=== PATIENT | male | born 1950 | race Caucasian/White ===

== ENCOUNTER 2017-04-24 09:16 | Outpatient (CLI) | payer MEDICARE, BC ==
--- OUTSIDE RECORDS SUMMARY | 2017-04-24 09:20 | XMS | Clinical Summary ---
:1950 Author Organization [facility] Address [address] [place] [address] Phone Care Team Providers Name Role Phone , Primary Care Provider Unavailable Allergies Not on File Current Medications Not on file Active Problems Not on file Social History Tobacco Use Types Packs/Day Years Used Date Never Assessed Sex Assigned at Date Recorded Not on file Last Filed Vital Signs Not on file Plan of Treatment Not on file Results Not on filefrom Last 3 Months
--- NOTE | 2017-04-24 11:14 | RAD ---
LEFT ANKLE 3 VIEWS: HISTORY: Left ankle pain for the past week. COMPARISON: None. FINDINGS: Radiopaque foreign object is present within the posteromedial soft tissues of the lower extremity. There is evidence of old medial ligamentous complex injury. Large enthesophyte of the posterior pro cess calcaneus. Moderate degenerative disease of the posterior subtalar joint. Mild mid foot collapse. IMPRESSION: Chronic changes as described above. POS: OFF
== END 2017-04-24 09:17 | disposition home or self-care (01) ==
LOC: SCSRAD 09:16
PROVIDERS: ATTEND Family Medicine
DX: M25.572 Pain in left ankle and joints of left foot (principal)

== ENCOUNTER 2017-11-01 08:47 | Outpatient (CLI) | payer MEDICARE, BC ==
--- NOTE | 2017-11-01 10:18 | RAD ---
RIGHT HIP 2 VIEWS: Date: 11/01/17 HISTORY: Right hip pain. FINDINGS: Degenerative changes are present. No fracture, dislocation, or bony destruction is identified. IMPRESSION: Right hip osteoarthritis. POS: [facility]
== END 2017-11-01 08:48 | disposition home or self-care (01) ==
LOC: TBSIIMAG 08:47
PROVIDERS: ATTEND Neurological Surgery
DX: M25.551 Pain in right hip (principal); M16.11 Unilateral primary osteoarthritis, right hip

== ENCOUNTER 2019-07-17 11:57 | Outpatient (CLI) | payer MEDICARE, BC ==
--- NOTE | 2019-07-17 12:28 | RAD ---
Exam: Chest 2 views HISTORY:CHF Comparison: 09/04/2016 FINDINGS: Lungs: No masses or consolidation. Cardiac silhouette:Mild enlargement Pulmonary vessels: Normal Pleural Spaces: Clear Pneumothorax: None Osseous abnormalities: None of acuity. IMPRESSION: No focal consolidation. Mild enlargement of cardiac silhouette.
== END 2019-07-17 11:58 | disposition home or self-care (01) ==
LOC: SCSRAD 11:57
PROVIDERS: ATTEND Internal Medicine
DX: I25.10 Atherosclerotic heart disease of native coronary artery without angina pectoris (principal); I51.7 Cardiomegaly
CPT/HCPCS: 36415; 71046; 83880

== ENCOUNTER 2020-07-28 08:01 | Outpatient (CLI) | payer MEDICARE, BC ==
[2020-07-29 01:36] LABS: SARS-CoV-2 MS2 Positive; SARS-CoV-2 N Gene Negative; SARS-CoV-2 S Gene Negative; SARS-CoV-2 by NAA Not Detected (NotDetected); SARS-CoV-2 orf1ab Negative
== END 2020-07-28 08:02 | disposition home or self-care (01) ==
LOC: LABBT 08:01
PROVIDERS: ATTEND Internal Medicine Gastroenterology
DX: Z01.812 Encounter for preprocedural laboratory examination (principal); R19.5 Other fecal abnormalities; Z20.822 Contact with and (suspected) exposure to COVID-19
CPT/HCPCS: 87635; U0003

== ENCOUNTER 2020-08-02 07:07 | Day surgery (SDC) | payer MEDICARE, BC ==
[2020-07-29 10:03] VITALS: BMI 48.6
--- NOTE | 2020-08-02 11:10 | OP ---
DATE OF PROCEDURE: 08/02/2020 PRE-PROCEDURE DIAGNOSES: 1. Positive Cologuard. 2. Normal CBC. 3. No GI symptoms. POSTPROCEDURE DIAGNOSES: 1. Two diminutive descending colon polyps, 1/2 retrieved. 2. Large cecal polyp, flat, removed with saline-assisted snare polypectomy, margin treated with APC and clip secondary to deep mucosal defect and bleeding. 3. Two diminutive sigmoid and one diminutive ascending colon polyp removed, not retrieved. 4. Two transverse colon polyps 3 to 4 mm in size, removed and retrieved. RECOMMENDATIONS: 1. Await histopathology. 2. Repeat colonoscopy in 1 year unless there is a high-grade dysplasia in the polyp, and he will need further treatment with surgery. 3. Resume preop medications. 4. We will discuss with the patient the results of the polypectomies in 1 week. ANESTHESIA: TIVA. PROCEDURE IN DETAIL: After the patient was informed of the risks, benefits, and possible complications of the endoscopy including perforation, reaction to medication and aspiration, informed consent was obtained. The patient was brought to endoscopy suite, where he was sedated in a gradual fashion. Once he was comfortable, rectal examination was performed, which was normal. There was normal prostate exam. Small internal hemorrhoids, but no overt lesions. Forward and retroflexed views of the rectum were normal. The endoscope was advanced into the colon. The cecum was identified by ileocecal valve and the appendiceal orifice. Prep was fair to good. Irrigation with about 500 mL of sterile water was performed to clear the prep as best we could. There was a large 2 cm flat cecal polyp in the cecum just to the right of the ileocecal valve with the ileocecal valve on the left. This was raised with sterile saline injection and then removed piecemeal with snare polypectomy. Margins were treated with argon plasma coagulation due to some oozing in the base. Clips were placed over this 3, with good closure of the mucosa. No residual polyp tissue was seen at the margins before closure. There was another polyp in the ascending and 2 in the sigmoids were diminutive, removed by cold snare polypectomy and retrieved. There were 2 descending colon polyps, removed by cold snare polypectomy, 1 which was treated, and there were two transverse colon polyps about 3 mm in size, which were removed and retrieved. No other lesions were seen. The cecum was re-evaluated to make sure there was no bleeding and there was not. The scope was removed, and the patient tolerated the procedure well with no complications. Job ID: [id number]
[2020-08-02] MEDS ORDERED: Lidocaine 1% PF 5 ML VIAL ONE (11:38)
[2020-08-02] MEDS ORDERED: PROPOFOL 200 MG/20 ML VIAL ONE (11:38)
== END 2020-08-02 11:30 | disposition home or self-care (01) ==
LOC: SDC 07:07
PROVIDERS: ATTEND Internal Medicine Gastroenterology
PROC: 3E0H87Z Introduction of Electrolytic and Water Balance Substance into Lower GI, Via Natural or Artificial Opening Endoscopic (ICD-10-PCS; principal; 2020-08-02)
PROC: 0DBK8ZX Excision of Ascending Colon, Via Natural or Artificial Opening Endoscopic, Diagnostic (ICD-10-PCS; 2020-08-02)
PROC: 0DBL8ZZ Excision of Transverse Colon, Via Natural or Artificial Opening Endoscopic (ICD-10-PCS; 2020-08-02)
PROC: 0DBN8ZX Excision of Sigmoid Colon, Via Natural or Artificial Opening Endoscopic, Diagnostic (ICD-10-PCS; 2020-08-02)
PROC: 0DBM8ZX Excision of Descending Colon, Via Natural or Artificial Opening Endoscopic, Diagnostic (ICD-10-PCS; 2020-08-02)
PROC: 0DBH8ZX Excision of Cecum, Via Natural or Artificial Opening Endoscopic, Diagnostic (ICD-10-PCS; 2020-08-02)
DX: D12.0 Benign neoplasm of cecum (principal); D12.3 Benign neoplasm of transverse colon; D12.4 Benign neoplasm of descending colon; K64.8 Other hemorrhoids; I25.10 Atherosclerotic heart disease of native coronary artery without angina pectoris; E11.9 Type 2 diabetes mellitus without complications; I25.2 Old myocardial infarction; I10 Essential (primary) hypertension; Z79.02 Long term (current) use of antithrombotics/antiplatelets; Z79.4 Long term (current) use of insulin; Z79.82 Long term (current) use of aspirin; Z79.899 Other long term (current) drug therapy; Z88.5 Allergy status to narcotic agent; Z95.5 Presence of coronary angioplasty implant and graft; Z98.1 Arthrodesis status
CPT/HCPCS: 36416; 88305; J2704

== ENCOUNTER 2021-01-04 08:20 | Outpatient (CLI) | payer MEDICARE, BC | END 2021-01-04 08:21 | disposition home or self-care (01) | LOC: BICRAD 08:20 | PROVIDERS: ATTEND Internal Medicine Critical Care Medicine | DX: R06.00 Dyspnea, unspecified (principal) | CPT/HCPCS: 71046 ==

== ENCOUNTER 2021-01-04 11:18 | Inpatient (IN) | payer MEDICARE, BC ==
[2021-01-04] MEDS ORDERED: Furosemide 40 MG/4 ML VIAL SLOW IVP SCH (11:30)
[2021-01-04] MEDS ORDERED: Furosemide 40 MG/4 ML VIAL ONE ×2 (11:34→11:35)
[2021-01-04 11:48] VITALS: BMI 46.7
[2021-01-04] MEDS ORDERED: Dextrose 50% Abboject 50 ML SYRINGE IVP PRN (12:30)
[2021-01-04] MEDS ORDERED: Dextrose 5% in Water 1,000 ML IV PRN ×2 (12:30→14:16)
[2021-01-04] MEDS ORDERED: Insulin Regular 300 UNITS/3 ML VIAL SC PRN (12:30)
[2021-01-04 13:25] LABS: #Basophils 0.1 thou/uL (0.0-0.2); #Eosinphils 0.3 thou/uL (0.0-0.7); #Lymphocytes 2.1 thou/uL (1.20-3.40); #Monocytes 0.5 thou/uL (0.11-0.59); #Neutrophils 4.1 thou/uL (1.40-6.50); %Eosinophils 4.4 % (0.0-10.0); %Lymphocytes 29.6 % (21.0-51.0); %Monocytes 6.5 % (0.0-10.0); %Neutrophils 58.6 % (42.0-75.0); Hemoglobin 12.3 g/dL (14.0-18.0); Mean Corpuscular HGB CONC 31.6 g/dL (32.0-36.0); Mean Corpuscular Hemoglobin 29.1 pg (27.0-31.0); Mean Corpuscular Volume 91.8 fL (78.0-98.0); Mean Platelet Volume 8.1 fL (7.4-10.4); Platelet Count 217 thou/uL (130-400); RBC Distribution Width 15.8 % (11.5-14.5); Red Blood Cell (RBC) Count 4.22 mill/uL (4.70-6.10)
[2021-01-04 13:46] LABS: ALT (SGPT) 18 U/L (8-55); AST (SGOT) 14 U/L (5-34); Albumin 3.4 g/dL (3.4-4.8); Alkaline Phosphatase 73 U/L (40-110); BUN (Urea Nitrogen) 21 mg/dL (8.4-25.7); Bilirubin, Total 0.7 mg/dL (0.2-1.2); Calc. Creatinine Clearance 112 mL/min (70-130); Globulin 2.9 g/dL (2.4-3.5); Glucose 114 mg/dL (83-110); Protein, Total 6.3 g/dL (5.8-8.1)
[2021-01-04 14:00] LABS: Anion Gap 13 mmol/L (10-20); Carbon Dioxide 37 mmol/L (23-31); Chloride 99 mmol/L (98-107); Potassium 3.1 mmol/L (3.5-5.1); Sodium 146 mmol/L (136-145)
[2021-01-04] MEDS ORDERED: Dextrose 50% Abboject 50 ML SYRINGE SLOW IVP PRN (14:16)
[2021-01-04] MEDS ORDERED: HYDROcodone/Acetaminophen 5/325 mg Tablet PO PRN (19:18)
[2021-01-04] MEDS ORDERED: Carvedilol 6.25 MG TAB PO SCH (21:00)
[2021-01-04] MEDS: Acetaminophen 325 MG TAB PO PRN (22:00)
[2021-01-04] MEDS: Carvedilol 25 MG TAB PO SCH (22:01)
[2021-01-04] MEDS: Rosuvastatin 20 MG TAB PO SCH (22:01)
[2021-01-04] MEDS: Famotidine 20 MG TAB PO SCH (22:01)
[2021-01-04] MEDS: Furosemide 100 MG/10 ML VIAL SLOW IVP SCH (22:02)
[2021-01-04] MEDS: Melatonin 3 MG TAB PO PRN (22:02)
[2021-01-05] MEDS ORDERED: ALPRAZolam 0.25 MG TAB PO SCH (01:30)
[2021-01-05 03:27] LABS: #Basophils 0.1 thou/uL (0.0-0.2); #Eosinphils 0.3 thou/uL (0.0-0.7); #Lymphocytes 1.6 thou/uL (1.20-3.40); #Monocytes 0.5 thou/uL (0.11-0.59); #Neutrophils 4.5 thou/uL (1.40-6.50); %Basophils 1.2 % (0.0-1.0); %Lymphocytes 22.9 % (21.0-51.0); %Monocytes 6.9 % (0.0-10.0); %Neutrophils 64.9 % (42.0-75.0); Hemoglobin 12.8 g/dL (14.0-18.0); Mean Corpuscular HGB CONC 31.8 g/dL (32.0-36.0); Mean Corpuscular Hemoglobin 29.4 pg (27.0-31.0); Mean Corpuscular Volume 92.4 fL (78.0-98.0); Mean Platelet Volume 8.2 fL (7.4-10.4); Platelet Count 204 thou/uL (130-400); RBC Distribution Width 15.8 % (11.5-14.5); Red Blood Cell (RBC) Count 4.35 mill/uL (4.70-6.10); White Blood Cell (WBC) Count 6.9 thou/uL (4.8-10.8)
[2021-01-05 03:51] LABS: BUN (Urea Nitrogen) 19 mg/dL (8.4-25.7); Calc. Creatinine Clearance 121 mL/min (70-130); Calcium 8.9 mg/dL (7.8-10.44); Glucose 157 mg/dL (83-110)
[2021-01-05 03:59] LABS: Anion Gap 20 mmol/L (10-20); Carbon Dioxide 33 mmol/L (23-31); Chloride 100 mmol/L (98-107); Sodium 149 mmol/L (136-145)
[2021-01-05] MEDS ORDERED: Furosemide 100 MG/10 ML VIAL SLOW IVP SCH (06:00)
[2021-01-05] MEDS: Lantus 1000 UNITS/10 ML VIAL SC SCH (07:45)
[2021-01-05] MEDS: Furosemide 100 MG/10 ML VIAL SLOW IVP SCH ×3 (07:47→21:05)
[2021-01-05] MEDS: Enoxaparin Sodium 40 MG/0.4 ML SYRINGE SC SCH (07:49)
[2021-01-05] MEDS: Ibuprofen 200 MG TAB PO PRN (07:49)
[2021-01-05] MEDS: Losartan 25 MG TAB PO SCH (07:50)
[2021-01-05] MEDS: Tamsulosin HCl 0.4 MG CAP PO SCH (07:50)
[2021-01-05] MEDS: Famotidine 20 MG TAB PO SCH ×2 (07:50→21:05)
[2021-01-05] MEDS: Carvedilol 25 MG TAB PO SCH ×2 (07:50→21:05)
[2021-01-05] MEDS: Finasteride 5 MG TAB PO SCH (07:50)
[2021-01-05] MEDS: Clopidogrel Bisulfate 75 MG TAB PO SCH (07:50)
[2021-01-05] MEDS ORDERED: Rosuvastatin 20 MG TAB PO SCH (09:00)
[2021-01-05] MEDS ORDERED: Furosemide 40 MG/4 ML VIAL SLOW IVP SCH (09:00)
[2021-01-05] MEDS: Rosuvastatin 20 MG TAB PO SCH (21:05)
[2021-01-05] MEDS: HumaLOG 300 UNITS/3 ML VIAL SC PRN (21:12)
[2021-01-05] MEDS: Melatonin 3 MG TAB PO PRN (21:12)
[2021-01-05] MEDS: Acetaminophen 325 MG TAB PO PRN (21:12)
[2021-01-06] MEDS: Acetaminophen 325 MG TAB PO PRN ×2 (06:01→20:22)
[2021-01-06] MEDS ORDERED: Metolazone 2.5 MG TAB PO SCH (08:30)
[2021-01-06] MEDS: Lantus 1000 UNITS/10 ML VIAL SC SCH (09:11)
[2021-01-06] MEDS: Carvedilol 25 MG TAB PO SCH ×2 (09:13→20:23)
[2021-01-06] MEDS: Tamsulosin HCl 0.4 MG CAP PO SCH (09:14)
[2021-01-06] MEDS: Clopidogrel Bisulfate 75 MG TAB PO SCH (09:14)
[2021-01-06] MEDS: Finasteride 5 MG TAB PO SCH (09:14)
[2021-01-06] MEDS: Famotidine 20 MG TAB PO SCH ×2 (09:15→20:23)
[2021-01-06] MEDS: Furosemide 100 MG/10 ML VIAL SLOW IVP SCH ×2 (09:15→20:21)
[2021-01-06] MEDS: Enoxaparin Sodium 40 MG/0.4 ML SYRINGE SC SCH (09:15)
[2021-01-06] MEDS: Losartan 25 MG TAB PO SCH (09:15)
[2021-01-06] MEDS: Ibuprofen 200 MG TAB PO PRN (10:37)
[2021-01-06 13:11] VITALS: BP 125/72
[2021-01-06] MEDS: HumaLOG 300 UNITS/3 ML VIAL SC PRN (20:22)
[2021-01-06] MEDS: Melatonin 3 MG TAB PO PRN (20:23)
[2021-01-06] MEDS: Rosuvastatin 20 MG TAB PO SCH (20:23)
[2021-01-07 03:45] LABS: BUN (Urea Nitrogen) 20 mg/dL (8.4-25.7); Calc. Creatinine Clearance 115 mL/min (70-130); Calcium 8.9 mg/dL (7.8-10.44); Glucose 163 mg/dL (83-110)
[2021-01-07 03:54] LABS: Anion Gap 12 mmol/L (10-20); Carbon Dioxide 40 mmol/L (23-31); Chloride 94 mmol/L (98-107); Sodium 143 mmol/L (136-145)
[2021-01-07 03:57] LABS: Potassium 2.8 mmol/L (3.5-5.1)
[2021-01-07 04:40] LABS: Band 2 % (5-11); Eosinophils 9 % (0-10); Hemoglobin 12.8 g/dL (14.0-18.0); Lymphocytes 20 % (21-51); MDiff Complete? YES; Mean Corpuscular Hemoglobin 29.4 pg (27.0-31.0); Mean Corpuscular Volume 91.9 fL (78.0-98.0); Mean Platelet Volume 8.7 fL (7.4-10.4); Monocytes 10 % (0-10); Neutrophil 59 % (42-75); Platelet Count 194 thou/uL (130-400); RBC Distribution Width 15.8 % (11.5-14.5); Red Blood Cell (RBC) Count 4.35 mill/uL (4.70-6.10); White Blood Cell (WBC) Count 7.8 thou/uL (4.8-10.8)
[2021-01-07] MEDS: Potassium Chloride 20 MEQ TAB PO SCH ×2 (04:54→09:01)
[2021-01-07] MEDS: Ibuprofen 200 MG TAB PO PRN (05:04)
[2021-01-07] MEDS ORDERED: Furosemide 100 MG/10 ML VIAL SLOW IVP SCH (06:00)
[2021-01-07 07:25] VITALS: TEMP 96
[2021-01-07] MEDS ORDERED: acetaZOLAMIDE Sodium 500 mg Vial IVP SCH (08:30)
[2021-01-07] MEDS: Lantus 1000 UNITS/10 ML VIAL SC SCH (09:01)
[2021-01-07] MEDS: Carvedilol 25 MG TAB PO SCH (09:02)
[2021-01-07] MEDS: Clopidogrel Bisulfate 75 MG TAB PO SCH (09:02)
[2021-01-07] MEDS: Enoxaparin Sodium 40 MG/0.4 ML SYRINGE SC SCH (09:03)
[2021-01-07] MEDS: Finasteride 5 MG TAB PO SCH (09:03)
[2021-01-07] MEDS: Losartan 25 MG TAB PO SCH (09:03)
[2021-01-07] MEDS: Famotidine 20 MG TAB PO SCH (09:03)
[2021-01-07] MEDS: Tamsulosin HCl 0.4 MG CAP PO SCH (09:04)
[2021-01-07] MEDS ORDERED: Sterile Water 10 ML ONE (09:08)
[2021-01-07] MEDS ORDERED: Sterile Water 10 ML VIAL IVP SCH (09:15)
== END 2021-01-07 11:08 | disposition home or self-care (01) | DRG 291 ==
LOC: CCU 11:21 → IMCU/EMU 14:21
PROVIDERS: ADMIT Internal Medicine Critical Care Medicine; ATTEND Internal Medicine Critical Care Medicine
DX: I11.0 Hypertensive heart disease with heart failure (principal); J96.01 Acute respiratory failure with hypoxia; I50.33 Acute on chronic diastolic (congestive) heart failure; Z68.43 Body mass index [BMI] 50.0-59.9, adult; B94.8 Sequelae of other specified infectious and parasitic diseases; J84.10 Pulmonary fibrosis, unspecified; I25.10 Atherosclerotic heart disease of native coronary artery without angina pectoris; I87.8 Other specified disorders of veins; E66.01 Morbid (severe) obesity due to excess calories; E11.9 Type 2 diabetes mellitus without complications; G47.30 Sleep apnea, unspecified; Z96.653 Presence of artificial knee joint, bilateral; R00.1 Bradycardia, unspecified; E78.5 Hyperlipidemia, unspecified; I48.91 Unspecified atrial fibrillation; Z95.5 Presence of coronary angioplasty implant and graft; Z90.49 Acquired absence of other specified parts of digestive tract; Z87.01 Personal history of pneumonia (recurrent); Z82.49 Family history of ischemic heart disease and other diseases of the circulatory system; Z81.8 Family history of other mental and behavioral disorders; Z98.890 Other specified postprocedural states; I25.2 Old myocardial infarction; Z86.010 Personal history of colon polyps; Z84.1 Family history of disorders of kidney and ureter; Z99.81 Dependence on supplemental oxygen; Z79.4 Long term (current) use of insulin; Z79.899 Other long term (current) drug therapy
CPT/HCPCS: 36415; 36416; 71045; 71046; 80048; 80053; 83880; 85007; 85025; 85027; 93306; 93970; J1120; J1650; J1815; J1940

== ENCOUNTER 2021-01-08 03:23 | Inpatient (IN) | payer MEDICARE, BC ==
[2021-01-08] MEDS ORDERED: Propofol 1,000 MG/100 ML VIAL IV ONE (05:47)
[2021-01-08] MEDS ORDERED: Norepinephrine 8 MG/0.9% NS 250 ML ONE (05:47)
[2021-01-08] MEDS ORDERED: Fentanyl CADD 100 ML ONE (05:48)
[2021-01-08] MEDS ORDERED: Ondansetron PF 4 MG/2 ML Vial IVP PRN (06:09)
[2021-01-08] MEDS ORDERED: Dextrose 5% in Water 1,000 ML IV PRN (06:13)
[2021-01-08] MEDS ORDERED: HumaLOG 300 UNITS/3 ML VIAL SC PRN (06:13)
[2021-01-08] MEDS ORDERED: Dextrose 50% Abboject 50 ML SYRINGE SLOW IVP PRN (06:13)
[2021-01-08] MEDS ORDERED: Propofol BOLUS 1,000 MG/100 ML VIAL IV PRN (06:45)
[2021-01-08] MEDS ORDERED: Morphine 2 MG/ML VIAL SLOW IVP PRN (06:45)
[2021-01-08] MEDS ORDERED: Fentanyl CADD 100 ML IV SCH (06:45)
[2021-01-08] MEDS ORDERED: Fentanyl BOLUS 250 ML IVPB PRN (06:45)
[2021-01-08] MEDS ORDERED: Norepinephrine 8 MG/0.9% NS 250 ML IVPB SCH (06:45)
[2021-01-08] MEDS ORDERED: Propofol 1,000 MG/100 ML VIAL IV PRN (06:45)
[2021-01-08 07:01] LABS: Lactic Acid 2.7 mmol/L (0.5-2.2)
[2021-01-08 07:11] LABS: Anion Gap 16 mmol/L (10-20); BUN (Urea Nitrogen) 32 mg/dL (8.4-25.7); Calc. Creatinine Clearance 65 mL/min (70-130); Calcium 8.7 mg/dL (7.8-10.44); Carbon Dioxide 36 mmol/L (23-31); Chloride 93 mmol/L (98-107); Glucose 200 mg/dL (83-110); Potassium 3.3 mmol/L (3.5-5.1); Sodium 142 mmol/L (136-145)
[2021-01-08 07:12] LABS: ALT (SGPT) 45 U/L (8-55); AST (SGOT) 58 U/L (5-34); Albumin 3.4 g/dL (3.4-4.8); Alkaline Phosphatase 111 U/L (40-110); Bilirubin, Total 1.1 mg/dL (0.2-1.2); Globulin 3.1 g/dL (2.4-3.5); Magnesium 1.9 mg/dL (1.6-2.6); Protein, Total 6.5 g/dL (5.8-8.1)
[2021-01-08 07:27] LABS: Band 20 % (5-11); Eosinophils 1 % (0-10); Hemoglobin 13.8 g/dL (14.0-18.0); Lymphocytes 19 % (21-51); MDiff Complete? YES; Mean Corpuscular Hemoglobin 30.3 pg (27.0-31.0); Mean Corpuscular Volume 91.9 fL (78.0-98.0); Mean Platelet Volume 8.8 fL (7.4-10.4); Monocytes 3 % (0-10); Neutrophil 57 % (42-75); Platelet Count 276 thou/uL (130-400); RBC Distribution Width 16.1 % (11.5-14.5); Red Blood Cell (RBC) Count 4.54 mill/uL (4.70-6.10); White Blood Cell (WBC) Count 13.7 thou/uL (4.8-10.8)
[2021-01-08] MEDS ORDERED: Magnesium Sulfate 2 GM in Sodium Chloride 0.9% 100 ML IVPB SCH (07:45)
[2021-01-08] MEDS ORDERED: Magnesium 2 GM/50 ML 2 GM in Premix Bag 1 BAG IVPB SCH (08:00)
[2021-01-08 08:08] LABS: Phosphorus 3.6 mg/dL (2.3-4.7)
[2021-01-08 08:13] LABS: Troponin I 0.179 ng/mL (< 0.028)
[2021-01-08] MEDS ORDERED: Electrolyte Replacement Protocol 1 EACH FS SCH (08:15)
[2021-01-08] MEDS ORDERED: Ventilator Sedation Protocol 1 EACH FS SCH (08:15)
[2021-01-08] MEDS ORDERED: Enoxaparin Sodium 40 MG/0.4 ML SYRINGE SC SCH (09:00)
[2021-01-08] MEDS ORDERED: Famotidine 20 MG TAB PO SCH (09:00)
[2021-01-08] MEDS ORDERED: VANCOMYCIN 1.75 GM/350 ML BAG 1.75 GM in Premix Bag 1 BAG IVPB SCH (09:00)
[2021-01-08] MEDS: Potassium Chloride 20 MEQ in Premix Bag 1 BAG IVPB SCH ×2 (09:01→10:16)
[2021-01-08] MEDS: Cefepime 2 GM in Sodium Chloride 0.9% 100 ML IVPB SCH ×2 (09:52→21:02)
[2021-01-08] MEDS: Aspirin 81 mg Enteric Coated Tablet PO SCH (09:52)
[2021-01-08] MEDS: Clopidogrel Bisulfate 75 MG TAB PO SCH (09:53)
[2021-01-08 14:02] LABS: Anion Gap 15 mmol/L (10-20); BUN (Urea Nitrogen) 33 mg/dL (8.4-25.7); Calc. Creatinine Clearance 69 mL/min (70-130); Calcium 8.5 mg/dL (7.8-10.44); Carbon Dioxide 37 mmol/L (23-31); Chloride 95 mmol/L (98-107); Glucose 111 mg/dL (83-110); Sodium 144 mmol/L (136-145)
[2021-01-08 14:07] LABS: Potassium 2.8 mmol/L (3.5-5.1)
[2021-01-08 14:08] LABS: Lactic Acid 2.3 mmol/L (0.5-2.2)
[2021-01-08 14:15] LABS: Troponin I 0.636 ng/mL (< 0.028)
[2021-01-08] MEDS ORDERED: Enoxaparin Sodium 100 MG/ML SYRINGE SC SCH (15:00)
[2021-01-08] MEDS ORDERED: Furosemide 40 MG/4 ML VIAL SLOW IVP SCH (15:30)
[2021-01-08] MEDS: Potassium Chloride 40 MEQ in Premix Bag 1 BAG IVPB SCH ×2 (16:17→18:08)
[2021-01-08] MEDS: Hydrocortisone Sod Succ/PF 100 mg/2 ml Vial IVP SCH ×2 (18:07→23:28)
[2021-01-08] MEDS: Potassium Bicarbonate/Cit Ac 20 MEQ TAB PER TUBE SCH ×2 (18:08→21:02)
[2021-01-08] MEDS ORDERED: Famotidine/PF 20 mg/2ml Vial SLOW IVP SCH (21:00)
[2021-01-08 21:15] LABS: Anion Gap 17 mmol/L (10-20); BUN (Urea Nitrogen) 33 mg/dL (8.4-25.7); Calc. Creatinine Clearance 68 mL/min (70-130); Calcium 8.8 mg/dL (7.8-10.44); Carbon Dioxide 35 mmol/L (23-31); Chloride 95 mmol/L (98-107); Glucose 138 mg/dL (83-110); Potassium 4.3 mmol/L (3.5-5.1); Sodium 143 mmol/L (136-145)
[2021-01-09] MEDS: Potassium Bicarbonate/Cit Ac 20 MEQ TAB PER TUBE SCH (00:53)
[2021-01-09] MEDS: Lorazepam 2 MG/ML VIAL SLOW IVP PRN ×2 (03:27→13:05)
[2021-01-09 04:55] LABS: Hemoglobin 13.1 g/dL (14.0-18.0); Mean Corpuscular HGB CONC 32.8 g/dL (32.0-36.0); Mean Corpuscular Volume 91.6 fL (78.0-98.0); Mean Platelet Volume 8.8 fL (7.4-10.4); Platelet Count 230 thou/uL (130-400); RBC Distribution Width 16.2 % (11.5-14.5); Red Blood Cell (RBC) Count 4.37 mill/uL (4.70-6.10)
[2021-01-09 05:04] LABS: Lactic Acid 2.2 mmol/L (0.5-2.2)
[2021-01-09 05:05] LABS: ALT (SGPT) 30 U/L (8-55); AST (SGOT) 28 U/L (5-34); Albumin 3.1 g/dL (3.4-4.8); Alkaline Phosphatase 91 U/L (40-110); Anion Gap 22 mmol/L (10-20); BUN (Urea Nitrogen) 37 mg/dL (8.4-25.7); Bilirubin, Total 1.4 mg/dL (0.2-1.2); Calc. Creatinine Clearance 66 mL/min (70-130); Calcium 8.7 mg/dL (7.8-10.44); Carbon Dioxide 30 mmol/L (23-31); Chloride 95 mmol/L (98-107); Globulin 3.1 g/dL (2.4-3.5); Glucose 213 mg/dL (83-110); Phosphorus 3.2 mg/dL (2.3-4.7); Potassium 3.8 mmol/L (3.5-5.1); Protein, Total 6.2 g/dL (5.8-8.1); Sodium 143 mmol/L (136-145)
[2021-01-09 05:23] LABS: Critical Call Chem Troponin I RESULT DECREASING
[2021-01-09 05:29] LABS: Band 9 % (5-11); Lymphocytes 14 % (21-51); MDiff Complete? YES; Monocytes 2 % (0-10); Neutrophil 75 % (42-75)
[2021-01-09 05:42] LABS: CKMB 1.1 ng/mL (0-6.6)
[2021-01-09] MEDS ORDERED: Magnesium 2 GM/50 ML 2 GM in Premix Bag 1 BAG IVPB SCH (06:30)
[2021-01-09] MEDS: Hydrocortisone Sod Succ/PF 100 mg/2 ml Vial IVP SCH ×3 (07:25→23:11)
[2021-01-09 07:33] LABS: Actual Bicarbonate (HCO3a) 26.2 mEq/L (22-28); Base Excess (BEa) 3.8 mEq/L (-2.0 to +3.0); CO2 Tension 33.1 mmHg (35.0-45.0); Calcium, Ionized (arterial) 1.02 mmol/L (1.12-1.30); Carboxyhemoglobin (COHb) 1.2 gm% (0.0-3.0); Hemoglobin (Hb) 15.3 g/dL (14.0-18.0); O2 Tension (PaO2), arterial 145.8 mmHg (> 70.0); Potassium - ABG Lab 3.59 mmol/L (3.70-5.30); pH, Arterial 7.52 (7.35-7.45)
[2021-01-09 07:50] LABS: ALV-art Gradient 204.975 mmHg (0-20); Puncture Site RRA
[2021-01-09] MEDS ORDERED: Sterile Water 10 ML ONE ×2 (08:05→21:08)
[2021-01-09] MEDS ORDERED: acetaZOLAMIDE Sodium 500 mg Vial IVP SCH (09:00)
[2021-01-09] MEDS: Clopidogrel Bisulfate 75 MG TAB PO SCH (09:35)
[2021-01-09] MEDS: Cefepime 2 GM in Sodium Chloride 0.9% 100 ML IVPB SCH ×2 (09:35→21:37)
[2021-01-09] MEDS: Aspirin 81 mg Enteric Coated Tablet PO SCH (09:35)
[2021-01-09 11:13] LABS: Hemoglobin 12.8 g/dL (14.0-18.0); Platelet Count 211 thou/uL (130-400)
[2021-01-09] MEDS: Insulin Regular 300 UNITS/3 ML VIAL SC PRN ×2 (11:19→17:25)
[2021-01-09 11:32] LABS: PTT 43.3 sec (22.9-36.1)
[2021-01-09 11:34] LABS: D-Dimer Test 1.69 *mcg/mL (0.27-0.43)
[2021-01-09] MEDS: Heparin 10,000 UNITS/ 10 ML VIAL SLOW IVP SCH (12:14)
[2021-01-09] MEDS: Heparin 25,000 units/D5W 500 ML IVPB SCH (12:16)
[2021-01-09 18:49] LABS: PTT Greater than 250.0 sec (22.9-36.1)
[2021-01-09 21:01] LABS: INR-International Normal Ratio 1.4; Prothrombin Time 17.6 sec (12.0-14.7)
[2021-01-09] MEDS: Pantoprazole 40 MG VIAL IVP SCH (21:37)
[2021-01-09] MEDS: acetaZOLAMIDE Sodium 500 mg Vial IVP SCH (21:37)
[2021-01-09] MEDS: HumaLOG 300 UNITS/3 ML VIAL SC PRN (23:02)
[2021-01-10] MEDS: Lorazepam 2 MG/ML VIAL SLOW IVP PRN (00:14)
[2021-01-10 05:24] LABS: Hemoglobin 12.4 g/dL (14.0-18.0); Mean Corpuscular Hemoglobin 30.1 pg (27.0-31.0); Mean Corpuscular Volume 91.1 fL (78.0-98.0); Mean Platelet Volume 8.6 fL (7.4-10.4); Platelet Count 217 thou/uL (130-400); RBC Distribution Width 15.7 % (11.5-14.5); Red Blood Cell (RBC) Count 4.13 mill/uL (4.70-6.10); White Blood Cell (WBC) Count 8.2 thou/uL (4.8-10.8)
[2021-01-10 05:49] LABS: ALT (SGPT) 23 U/L (8-55); AST (SGOT) 15 U/L (5-34); Alkaline Phosphatase 80 U/L (40-110); Anion Gap 19 mmol/L (10-20); BUN (Urea Nitrogen) 43 mg/dL (8.4-25.7); Band 6 % (5-11); Bilirubin, Total 0.9 mg/dL (0.2-1.2); Calc. Creatinine Clearance 70 mL/min (70-130); Calcium 8.5 mg/dL (7.8-10.44); Carbon Dioxide 29 mmol/L (23-31); Chloride 96 mmol/L (98-107); Globulin 2.9 g/dL (2.4-3.5); Glucose 318 mg/dL (83-110); Lymphocytes 12 % (21-51); MDiff Complete? YES; Magnesium 2.5 mg/dL (1.6-2.6); Monocytes 3 % (0-10); Neutrophil 79 % (42-75); Protein, Total 5.9 g/dL (5.8-8.1); Sodium 141 mmol/L (136-145)
[2021-01-10 05:52] LABS: Potassium 2.7 mmol/L (3.5-5.1)
[2021-01-10] MEDS: Insulin Regular 300 UNITS/3 ML VIAL SC PRN ×3 (06:10→21:53)
[2021-01-10 06:11] LABS: PTT 155.8 sec (22.9-36.1)
[2021-01-10] MEDS: Heparin 25,000 units/D5W 500 ML IVPB SCH (06:13)
[2021-01-10] MEDS: Potassium Chloride 40 MEQ in Sodium Chloride 0.9% 250 ML 250 ML IVPB SCH ×2 (07:14→21:44)
[2021-01-10] MEDS: Hydrocortisone Sod Succ/PF 100 mg/2 ml Vial IVP SCH ×3 (07:26→23:47)
[2021-01-10 07:36] LABS: Actual Bicarbonate (HCO3a) 29.9 mEq/L (22-28); Base Excess (BEa) 6.8 mEq/L (-2.0 to +3.0); CO2 Tension 37.2 mmHg (35.0-45.0); Calcium, Ionized (arterial) 1.02 mmol/L (1.12-1.30); Hemoglobin (Hb) 13.1 g/dL (14.0-18.0); O2 Tension (PaO2), arterial 141.4 mmHg (> 70.0); Potassium - ABG Lab 2.36 mmol/L (3.70-5.30); pH, Arterial 7.52 (7.35-7.45)
[2021-01-10 07:45] LABS: Puncture Site RRA
[2021-01-10 08:45] LABS: Vancomycin, Trough 6.2 ug/mL
[2021-01-10] MEDS: Cefepime 2 GM in Sodium Chloride 0.9% 100 ML IVPB SCH ×2 (09:29→20:44)
[2021-01-10] MEDS ORDERED: Potassium Chloride 40 MEQ in Premix Bag 1 BAG IVPB SCH (10:45)
[2021-01-10] MEDS: HumaLOG 300 UNITS/3 ML VIAL SC PRN (16:07)
[2021-01-10 16:11] LABS: PTT 125.2 sec (22.9-36.1)
[2021-01-10 16:34] LABS: Anion Gap 17 mmol/L (10-20); BUN (Urea Nitrogen) 42 mg/dL (8.4-25.7); Calc. Creatinine Clearance 80 mL/min (70-130); Calcium 8.6 mg/dL (7.8-10.44); Carbon Dioxide 29 mmol/L (23-31); Chloride 101 mmol/L (98-107); Glucose 287 mg/dL (83-110); Sodium 144 mmol/L (136-145)
[2021-01-10 16:53] LABS: Potassium 2.9 mmol/L (3.5-5.1)
[2021-01-10] MEDS ORDERED: Sterile Water 10 ML ONE (17:14)
[2021-01-10] MEDS ORDERED: Electrolyte Replacement Protocol FS PRN (17:15)
[2021-01-10] MEDS: acetaZOLAMIDE Sodium 500 mg Vial IVP SCH ×2 (17:17→21:43)
[2021-01-10] MEDS: Potassium Chloride 40 MEQ in Premix Bag 1 BAG IVPB SCH ×2 (17:17→20:45)
[2021-01-10] MEDS: Pantoprazole 40 MG VIAL IVP SCH (20:07)
[2021-01-10] MEDS ORDERED: Lantus 1000 UNITS/10 ML VIAL SC SCH (21:00)
[2021-01-10] MEDS: Aspirin 81 mg Enteric Coated Tablet PO SCH (21:43)
[2021-01-11] MEDS: Heparin 10,000 UNITS/ 10 ML VIAL SLOW IVP SCH (01:41)
[2021-01-11] MEDS ORDERED: Sterile Water 10 ML ONE (03:15)
[2021-01-11] MEDS: acetaZOLAMIDE Sodium 500 mg Vial IVP SCH ×2 (04:07→17:00)
[2021-01-11 04:14] LABS: Hemoglobin 12.1 g/dL (14.0-18.0); Mean Corpuscular HGB CONC 31.6 g/dL (32.0-36.0); Mean Corpuscular Hemoglobin 28.8 pg (27.0-31.0); Mean Corpuscular Volume 91.2 fL (78.0-98.0); Mean Platelet Volume 8.7 fL (7.4-10.4); Platelet Count 196 thou/uL (130-400); RBC Distribution Width 15.6 % (11.5-14.5); Red Blood Cell (RBC) Count 4.18 mill/uL (4.70-6.10)
[2021-01-11 04:36] LABS: Phosphorus 2.7 mg/dL (2.3-4.7)
[2021-01-11 04:39] LABS: ALT (SGPT) 17 U/L (8-55); AST (SGOT) 14 U/L (5-34); Albumin 2.8 g/dL (3.4-4.8); Alkaline Phosphatase 71 U/L (40-110); Anion Gap 13 mmol/L (10-20); BUN (Urea Nitrogen) 40 mg/dL (8.4-25.7); Bilirubin, Total 0.7 mg/dL (0.2-1.2); Calc. Creatinine Clearance 88 mL/min (70-130); Calcium 8.5 mg/dL (7.8-10.44); Carbon Dioxide 31 mmol/L (23-31); Chloride 103 mmol/L (98-107); Globulin 2.8 g/dL (2.4-3.5); Glucose 265 mg/dL (83-110); Magnesium 2.4 mg/dL (1.6-2.6); Protein, Total 5.6 g/dL (5.8-8.1); Sodium 144 mmol/L (136-145)
[2021-01-11 04:50] LABS: Potassium 2.6 mmol/L (3.5-5.1)
[2021-01-11 04:52] LABS: Band 13 % (5-11); Lymphocytes 3 % (21-51); MDiff Complete? YES; Monocytes 6 % (0-10); Neutrophil 78 % (42-75)
[2021-01-11] MEDS: Insulin Regular 300 UNITS/3 ML VIAL SC PRN ×3 (05:08→18:18)
[2021-01-11] MEDS: Potassium Chloride 40 MEQ in Premix Bag 1 BAG IVPB SCH ×3 (06:11→23:17)
[2021-01-11] MEDS: Hydrocortisone Sod Succ/PF 100 mg/2 ml Vial IVP SCH ×2 (06:12→15:54)
[2021-01-11 07:39] LABS: Actual Bicarbonate (HCO3a) 32.3 mEq/L (22-28); Base Excess (BEa) 7.5 mEq/L (-2.0 to +3.0); CO2 Tension 46.2 mmHg (35.0-45.0); Carboxyhemoglobin (COHb) 0.7 gm% (0.0-3.0); Hemoglobin (Hb) 12.6 g/dL (14.0-18.0); O2 Tension (PaO2), arterial 89.9 mmHg (> 70.0); Potassium - ABG Lab 2.63 mmol/L (3.70-5.30); pH, Arterial 7.46 (7.35-7.45)
[2021-01-11 07:47] LABS: Puncture Site LRA
[2021-01-11] MEDS: Heparin 25,000 units/D5W 500 ML IVPB SCH (07:56)
[2021-01-11] MEDS: Aspirin Chewable 81 MG TAB PO SCH (09:27)
[2021-01-11] MEDS: Cefepime 2 GM in Sodium Chloride 0.9% 100 ML IVPB SCH (09:59)
[2021-01-11] MEDS ORDERED: Lantus 1000 UNITS/10 ML VIAL SC SCH (10:45)
[2021-01-11 14:36] LABS: Potassium 3.4 mmol/L (3.5-5.1)
[2021-01-11] MEDS: Rosuvastatin 20 MG TAB PO SCH (20:21)
[2021-01-11] MEDS: Lantus 1000 UNITS/10 ML VIAL SC SCH (20:21)
[2021-01-11] MEDS: Pantoprazole 40 MG VIAL IVP SCH (20:21)
[2021-01-11] MEDS: HumaLOG 300 UNITS/3 ML VIAL SC PRN (21:59)
[2021-01-11 22:48] LABS: Potassium 2.9 mmol/L (3.5-5.1)
[2021-01-12] MEDS: Heparin 25,000 units/D5W 500 ML IVPB SCH (04:28)
[2021-01-12] MEDS: Potassium Chloride 40 MEQ in Premix Bag 1 BAG IVPB SCH (04:28)
[2021-01-12 04:46] LABS: Hemoglobin 11.7 g/dL (14.0-18.0); Mean Corpuscular HGB CONC 32.9 g/dL (32.0-36.0); Mean Corpuscular Hemoglobin 30.4 pg (27.0-31.0); Mean Corpuscular Volume 92.4 fL (78.0-98.0); Mean Platelet Volume 8.8 fL (7.4-10.4); Platelet Count 190 thou/uL (130-400); RBC Distribution Width 15.6 % (11.5-14.5); Red Blood Cell (RBC) Count 3.84 mill/uL (4.70-6.10); White Blood Cell (WBC) Count 8.1 thou/uL (4.8-10.8)
[2021-01-12 04:59] LABS: Phosphorus 2.7 mg/dL (2.3-4.7)
[2021-01-12 05:01] LABS: ALT (SGPT) 17 U/L (8-55); AST (SGOT) 14 U/L (5-34); Albumin 2.9 g/dL (3.4-4.8); Alkaline Phosphatase 69 U/L (40-110); Anion Gap 8 mmol/L (10-20); BUN (Urea Nitrogen) 40 mg/dL (8.4-25.7); Bilirubin, Total 0.6 mg/dL (0.2-1.2); Calc. Creatinine Clearance 99 mL/min (70-130); Calcium 8.7 mg/dL (7.8-10.44); Carbon Dioxide 36 mmol/L (23-31); Chloride 107 mmol/L (98-107); Globulin 2.9 g/dL (2.4-3.5); Glucose 226 mg/dL (83-110); Magnesium 2.5 mg/dL (1.6-2.6); Potassium 3.5 mmol/L (3.5-5.1); Protein, Total 5.8 g/dL (5.8-8.1); Sodium 147 mmol/L (136-145)
[2021-01-12 05:23] LABS: Band 10 % (5-11); Lymphocytes 16 % (21-51); MDiff Complete? YES; Monocytes 2 % (0-10); Neutrophil 72 % (42-75)
[2021-01-12] MEDS: Insulin Regular 300 UNITS/3 ML VIAL SC PRN ×3 (05:34→17:04)
[2021-01-12] MEDS ORDERED: Potassium Bicarbonate/Cit Ac 20 MEQ TAB PER TUBE SCH (08:00)
[2021-01-12] MEDS: methylPREDNISolone Sod Succ 40 MG VIAL IVP SCH (08:42)
[2021-01-12] MEDS ORDERED: Potassium Chloride 40 MEQ in Premix Bag 1 BAG IVPB SCH (08:45)
[2021-01-12] MEDS: Aspirin Chewable 81 MG TAB PO SCH (08:50)
[2021-01-12] MEDS: Potassium Chloride 20 MEQ TAB PO SCH ×2 (12:00→16:52)
[2021-01-12 16:35] LABS: Anion Gap 10 mmol/L (10-20); BUN (Urea Nitrogen) 38 mg/dL (8.4-25.7); Calc. Creatinine Clearance 115 mL/min (70-130); Calcium 8.5 mg/dL (7.8-10.44); Carbon Dioxide 33 mmol/L (23-31); Chloride 106 mmol/L (98-107); Glucose 223 mg/dL (83-110); Potassium 3.8 mmol/L (3.5-5.1); Sodium 145 mmol/L (136-145)
[2021-01-12] MEDS ORDERED: Potassium Chloride 20 MEQ TAB PO SCH (19:11)
[2021-01-12] MEDS: Pantoprazole 40 MG VIAL IVP SCH (20:56)
[2021-01-12] MEDS: Lantus 1000 UNITS/10 ML VIAL SC SCH (20:57)
[2021-01-12] MEDS: Rosuvastatin 20 MG TAB PO SCH (20:57)
[2021-01-13 04:35] LABS: #Lymphocytes 1.4 thou/uL (1.20-3.40); #Monocytes 0.7 thou/uL (0.11-0.59); #Neutrophils 5.5 thou/uL (1.40-6.50); %Eosinophils 0.4 % (0.0-10.0); %Lymphocytes 17.9 % (21.0-51.0); %Monocytes 9.3 % (0.0-10.0); %Neutrophils 72.4 % (42.0-75.0); Hemoglobin 11.2 g/dL (14.0-18.0); Mean Corpuscular HGB CONC 30.8 g/dL (32.0-36.0); Mean Corpuscular Hemoglobin 28.9 pg (27.0-31.0); Mean Corpuscular Volume 93.9 fL (78.0-98.0); Mean Platelet Volume 8.7 fL (7.4-10.4); Platelet Count 199 thou/uL (130-400); RBC Distribution Width 15.5 % (11.5-14.5); Red Blood Cell (RBC) Count 3.88 mill/uL (4.70-6.10); White Blood Cell (WBC) Count 7.6 thou/uL (4.8-10.8)
[2021-01-13 04:55] LABS: Anion Gap 12 mmol/L (10-20); BUN (Urea Nitrogen) 35 mg/dL (8.4-25.7); Calc. Creatinine Clearance 129 mL/min (70-130); Calcium 8.6 mg/dL (7.8-10.44); Carbon Dioxide 31 mmol/L (23-31); Chloride 105 mmol/L (98-107); Glucose 180 mg/dL (83-110); Potassium 3.4 mmol/L (3.5-5.1); Sodium 145 mmol/L (136-145)
[2021-01-13] MEDS: Potassium Chloride 20 MEQ in Premix Bag 1 BAG IVPB SCH ×2 (09:07→09:09)
[2021-01-13] MEDS: methylPREDNISolone Sod Succ 40 MG VIAL IVP SCH (09:08)
[2021-01-13] MEDS: Aspirin Chewable 81 MG TAB PO SCH (09:08)
[2021-01-13] MEDS ORDERED: Iopamidol-370 76% 500 ML 1 ML ONE (10:40)
[2021-01-13 16:32] LABS: Anion Gap 14 mmol/L (10-20); BUN (Urea Nitrogen) 36 mg/dL (8.4-25.7); Calc. Creatinine Clearance 121 mL/min (70-130); Calcium 8.5 mg/dL (7.8-10.44); Carbon Dioxide 30 mmol/L (23-31); Chloride 105 mmol/L (98-107); Glucose 263 mg/dL (83-110); Potassium 4.5 mmol/L (3.5-5.1); Sodium 144 mmol/L (136-145)
[2021-01-13] MEDS: Insulin Regular 300 UNITS/3 ML VIAL SC PRN (18:10)
[2021-01-13] MEDS: Rosuvastatin 20 MG TAB PO SCH (21:15)
[2021-01-13] MEDS: Pantoprazole 40 MG GRANULES PACKET PO SCH (21:15)
[2021-01-13] MEDS: Enoxaparin Sodium 60 MG/0.6 ML SYRINGE SC SCH (21:15)
[2021-01-13] MEDS: Enoxaparin Sodium 100 MG/ML SYRINGE SC SCH (21:16)
[2021-01-13] MEDS: Lantus 1000 UNITS/10 ML VIAL SC SCH (21:17)
[2021-01-13] MEDS: HumaLOG 300 UNITS/3 ML VIAL SC PRN (21:17)
[2021-01-14 03:19] LABS: #Lymphocytes 1.4 thou/uL (1.20-3.40); #Monocytes 0.8 thou/uL (0.11-0.59); %Basophils 0.3 % (0.0-1.0); %Eosinophils 0.5 % (0.0-10.0); %Lymphocytes 15.2 % (21.0-51.0); %Monocytes 8.1 % (0.0-10.0); %Neutrophils 75.8 % (42.0-75.0); Hemoglobin 11.8 g/dL (14.0-18.0); Mean Corpuscular HGB CONC 32.3 g/dL (32.0-36.0); Mean Corpuscular Volume 93.1 fL (78.0-98.0); Mean Platelet Volume 8.5 fL (7.4-10.4); Platelet Count 200 thou/uL (130-400); RBC Distribution Width 15.5 % (11.5-14.5); Red Blood Cell (RBC) Count 3.91 mill/uL (4.70-6.10); White Blood Cell (WBC) Count 9.3 thou/uL (4.8-10.8)
[2021-01-14 03:42] LABS: Anion Gap 11 mmol/L (10-20); BUN (Urea Nitrogen) 35 mg/dL (8.4-25.7); Calc. Creatinine Clearance 127 mL/min (70-130); Calcium 8.8 mg/dL (7.8-10.44); Carbon Dioxide 33 mmol/L (23-31); Chloride 106 mmol/L (98-107); Glucose 213 mg/dL (83-110); Potassium 4.7 mmol/L (3.5-5.1); Sodium 145 mmol/L (136-145)
[2021-01-14] MEDS: Enoxaparin Sodium 60 MG/0.6 ML SYRINGE SC SCH ×2 (09:10→21:21)
[2021-01-14] MEDS: Aspirin Chewable 81 MG TAB PO SCH (09:10)
[2021-01-14] MEDS: methylPREDNISolone Sod Succ 40 MG VIAL IVP SCH (09:11)
[2021-01-14] MEDS: Enoxaparin Sodium 100 MG/ML SYRINGE SC SCH ×2 (09:11→21:21)
[2021-01-14] MEDS: Furosemide 80 MG TAB PO SCH ×2 (09:15→15:45)
[2021-01-14] MEDS: Insulin Regular 300 UNITS/3 ML VIAL SC PRN ×2 (12:30→16:51)
[2021-01-14] MEDS ORDERED: Bisacodyl 10 MG SUPP PR PRN (14:59)
[2021-01-14] MEDS ORDERED: Senokot 8.6 MG TAB PO SCH (15:00)
[2021-01-14] MEDS ORDERED: Bisacodyl 10 MG SUPP PR SCH (15:00)
[2021-01-14] MEDS ORDERED: Polyethylene Glycol 3350 17 GM Packet PO SCH (15:00)
[2021-01-14 16:20] LABS: Potassium 4.2 mmol/L (3.5-5.1)
[2021-01-14] MEDS: Lantus 1000 UNITS/10 ML VIAL SC SCH (21:16)
[2021-01-14] MEDS: Senokot S 8.6-50 MG TAB PO SCH (21:21)
[2021-01-14] MEDS: Rosuvastatin 20 MG TAB PO SCH (21:21)
[2021-01-14] MEDS: Pantoprazole 40 MG GRANULES PACKET PO SCH (21:21)
[2021-01-15 03:46] LABS: #Eosinphils 0.3 thou/uL (0.0-0.7); #Lymphocytes 1.5 thou/uL (1.20-3.40); #Monocytes 1.1 thou/uL (0.11-0.59); #Neutrophils 10.3 thou/uL (1.40-6.50); %Basophils 0.3 % (0.0-1.0); %Lymphocytes 11.4 % (21.0-51.0); %Monocytes 8.5 % (0.0-10.0); %Neutrophils 77.9 % (42.0-75.0); Hemoglobin 11.9 g/dL (14.0-18.0); Mean Corpuscular HGB CONC 32.5 g/dL (32.0-36.0); Mean Corpuscular Hemoglobin 30.1 pg (27.0-31.0); Mean Corpuscular Volume 92.8 fL (78.0-98.0); Mean Platelet Volume 8.8 fL (7.4-10.4); Platelet Count 230 thou/uL (130-400); RBC Distribution Width 15.3 % (11.5-14.5); Red Blood Cell (RBC) Count 3.95 mill/uL (4.70-6.10); White Blood Cell (WBC) Count 13.2 thou/uL (4.8-10.8)
[2021-01-15 04:26] LABS: Anion Gap 15 mmol/L (10-20); BUN (Urea Nitrogen) 28 mg/dL (8.4-25.7); Calc. Creatinine Clearance 167 mL/min (70-130); Calcium 8.8 mg/dL (7.8-10.44); Carbon Dioxide 28 mmol/L (23-31); Chloride 106 mmol/L (98-107); Glucose 132 mg/dL (83-110); Potassium 3.8 mmol/L (3.5-5.1); Sodium 145 mmol/L (136-145)
[2021-01-15] MEDS: Furosemide 80 MG TAB PO SCH ×2 (09:29→14:55)
[2021-01-15] MEDS: Aspirin Chewable 81 MG TAB PO SCH (09:29)
[2021-01-15] MEDS: Senokot S 8.6-50 MG TAB PO SCH ×2 (09:29→20:53)
[2021-01-15] MEDS: methylPREDNISolone Sod Succ 40 MG VIAL IVP SCH (09:30)
[2021-01-15] MEDS: Polyethylene Glycol 3350 17 GM Packet PO SCH (09:32)
[2021-01-15] MEDS: Enoxaparin Sodium 60 MG/0.6 ML SYRINGE SC SCH ×2 (09:32→20:53)
[2021-01-15] MEDS: Enoxaparin Sodium 100 MG/ML SYRINGE SC SCH ×2 (09:32→20:53)
[2021-01-15] MEDS: Insulin Regular 300 UNITS/3 ML VIAL SC PRN (15:43)
[2021-01-15 16:38] LABS: Potassium 4.6 mmol/L (3.5-5.1)
[2021-01-15] MEDS: Lantus 1000 UNITS/10 ML VIAL SC SCH (20:53)
[2021-01-15] MEDS: Rosuvastatin 20 MG TAB PO SCH (20:53)
[2021-01-15] MEDS: Pantoprazole 40 MG GRANULES PACKET PO SCH (20:53)
[2021-01-16] MEDS ORDERED: Magnesium 2 GM/50 ML 2 GM in Premix Bag 1 BAG IVPB SCH (06:30)
[2021-01-16] MEDS: Enoxaparin Sodium 60 MG/0.6 ML SYRINGE SC SCH ×2 (09:46→21:35)
[2021-01-16] MEDS: Polyethylene Glycol 3350 17 GM Packet PO SCH (09:46)
[2021-01-16] MEDS: Enoxaparin Sodium 100 MG/ML SYRINGE SC SCH ×2 (09:46→21:35)
[2021-01-16] MEDS: Furosemide 80 MG TAB PO SCH ×2 (09:47→13:33)
[2021-01-16] MEDS: Aspirin Chewable 81 MG TAB PO SCH (09:47)
[2021-01-16] MEDS: Senokot S 8.6-50 MG TAB PO SCH ×2 (09:47→21:37)
[2021-01-16] MEDS: methylPREDNISolone Sod Succ 40 MG VIAL IVP SCH (09:47)
[2021-01-16] MEDS: Insulin Regular 300 UNITS/3 ML VIAL SC PRN ×2 (12:42→16:24)
[2021-01-16 15:16] LABS: Potassium 3.4 mmol/L (3.5-5.1)
[2021-01-16] MEDS: Rosuvastatin 20 MG TAB PO SCH (21:35)
[2021-01-16] MEDS: Pantoprazole 40 MG GRANULES PACKET PO SCH (21:36)
[2021-01-16] MEDS: Lantus 1000 UNITS/10 ML VIAL SC SCH (21:36)
[2021-01-16] MEDS: HumaLOG 300 UNITS/3 ML VIAL SC PRN (21:37)
[2021-01-17 04:21] LABS: Band 2 % (5-11); Hemoglobin 11.7 g/dL (14.0-18.0); Hypochromia SLIGHT = 6-15 cells (100X) (0-5/hpf); Lymphocytes 25 % (21-51); MDiff Complete? YES; Mean Corpuscular HGB CONC 33.1 g/dL (32.0-36.0); Mean Corpuscular Hemoglobin 30.6 pg (27.0-31.0); Mean Corpuscular Volume 92.5 fL (78.0-98.0); Mean Platelet Volume 8.4 fL (7.4-10.4); Monocytes 3 % (0-10); Neutrophil 70 % (42-75); Platelet Count 259 thou/uL (130-400); Platelet Morphology Comment Appears Adequate; RBC Distribution Width 15.1 % (11.5-14.5); Red Blood Cell (RBC) Count 3.83 mill/uL (4.70-6.10); White Blood Cell (WBC) Count 10.1 thou/uL (4.8-10.8)
[2021-01-17 04:28] LABS: Anion Gap 11 mmol/L (10-20); BUN (Urea Nitrogen) 18 mg/dL (8.4-25.7); Calc. Creatinine Clearance 175 mL/min (70-130); Calcium 8.4 mg/dL (7.8-10.44); Carbon Dioxide 37 mmol/L (23-31); Chloride 98 mmol/L (98-107); Glucose 117 mg/dL (83-110); Magnesium 1.7 mg/dL (1.6-2.6); Potassium 3.2 mmol/L (3.5-5.1); Sodium 143 mmol/L (136-145)
[2021-01-17] MEDS ORDERED: Magnesium 2 GM/50 ML 2 GM in Premix Bag 1 BAG IVPB SCH (05:30)
[2021-01-17] MEDS ORDERED: Potassium Chloride 40 MEQ in Sodium Chloride 0.9% 250 ML 250 ML IVPB SCH (06:00)
[2021-01-17] MEDS: methylPREDNISolone Sod Succ 40 MG VIAL IVP SCH (09:46)
[2021-01-17] MEDS: Senokot S 8.6-50 MG TAB PO SCH ×2 (09:55→21:09)
[2021-01-17] MEDS: Polyethylene Glycol 3350 17 GM Packet PO SCH (09:55)
[2021-01-17] MEDS ORDERED: Iopamidol 370 76% 50 ML VIAL FS ONE (10:47)
[2021-01-17] MEDS ORDERED: Iopamidol 370 76% 100 ML VIAL ONE (10:47)
[2021-01-17] MEDS ORDERED: Lidocaine 1% (PF) 30 ML VIAL ONE ×2 (12:10→13:40)
[2021-01-17] MEDS ORDERED: Fentanyl 100 MCG/2 ML VIAL ONE (13:06)
[2021-01-17] MEDS ORDERED: Midazolam HCl 2 mg/2 ml Vial ONE (13:06)
[2021-01-17] MEDS ORDERED: Furosemide 40 MG/4 ML VIAL ONE ×3 (13:10→14:36)
[2021-01-17] MEDS ORDERED: Ketamine 50 MG/ML (10ML VIAL) ONE (14:06)
[2021-01-17] MEDS ORDERED: Propofol 500 MG/50 ML VIAL ONE (14:06)
[2021-01-17] MEDS ORDERED: Nitroglycerin 2% Ointment 1 INCH/1 GM Packet ONE (14:36)
[2021-01-17] MEDS: Furosemide 80 MG TAB PO SCH ×2 (14:57→16:02)
[2021-01-17] MEDS: Aspirin Chewable 81 MG TAB PO SCH (14:57)
[2021-01-17] MEDS ORDERED: Furosemide 20 MG/2 ML VIAL SLOW IVP SCH (15:00)
[2021-01-17 15:17] LABS: Potassium 3.8 mmol/L (3.5-5.1)
[2021-01-17] MEDS: Lantus 1000 UNITS/10 ML VIAL SC SCH (21:09)
[2021-01-17] MEDS: Pantoprazole 40 MG GRANULES PACKET PO SCH (21:09)
[2021-01-17] MEDS: Rosuvastatin 20 MG TAB PO SCH (21:09)
[2021-01-18 04:11] LABS: #Eosinphils 0.1 thou/uL (0.0-0.7); #Lymphocytes 1.6 thou/uL (1.20-3.40); #Monocytes 0.8 thou/uL (0.11-0.59); #Neutrophils 7.4 thou/uL (1.40-6.50); %Basophils 0.1 % (0.0-1.0); %Eosinophils 0.7 % (0.0-10.0); %Lymphocytes 16.6 % (21.0-51.0); %Monocytes 8.1 % (0.0-10.0); %Neutrophils 74.6 % (42.0-75.0); Hemoglobin 11.3 g/dL (14.0-18.0); Mean Corpuscular HGB CONC 29.7 g/dL (32.0-36.0); Mean Corpuscular Hemoglobin 27.4 pg (27.0-31.0); Mean Corpuscular Volume 92.3 fL (78.0-98.0); Mean Platelet Volume 8.5 fL (7.4-10.4); Platelet Count 326 thou/uL (130-400); Red Blood Cell (RBC) Count 4.12 mill/uL (4.70-6.10); White Blood Cell (WBC) Count 9.9 thou/uL (4.8-10.8)
[2021-01-18 04:30] LABS: Anion Gap 16 mmol/L (10-20); BUN (Urea Nitrogen) 18 mg/dL (8.4-25.7); Calc. Creatinine Clearance 167 mL/min (70-130); Calcium 8.8 mg/dL (7.8-10.44); Carbon Dioxide 37 mmol/L (23-31); Chloride 96 mmol/L (98-107); Glucose 121 mg/dL (83-110); Magnesium 1.7 mg/dL (1.6-2.6); Potassium 4.6 mmol/L (3.5-5.1); Sodium 144 mmol/L (136-145)
[2021-01-18] MEDS ORDERED: Magnesium 2 GM/50 ML 2 GM in Premix Bag 1 BAG IVPB SCH (06:15)
[2021-01-18] MEDS ORDERED: Enoxaparin Sodium 100 MG/ML SYRINGE SC SCH ×2 (09:30→21:00)
[2021-01-18] MEDS: Furosemide 80 MG TAB PO SCH ×2 (09:31→14:07)
[2021-01-18] MEDS: Aspirin Chewable 81 MG TAB PO SCH (09:31)
[2021-01-18] MEDS: methylPREDNISolone Sod Succ 40 MG VIAL IVP SCH (09:32)
[2021-01-18] MEDS: Polyethylene Glycol 3350 17 GM Packet PO SCH (09:45)
[2021-01-18] MEDS: Senokot S 8.6-50 MG TAB PO SCH ×2 (09:46→21:44)
[2021-01-18] MEDS ORDERED: acetaZOLAMIDE Sodium 500 mg Vial IVP SCH (15:30)
[2021-01-18 16:08] LABS: Potassium 4.1 mmol/L (3.5-5.1)
[2021-01-18] MEDS ORDERED: Sterile Water 10 ML ONE (16:39)
[2021-01-18] MEDS: HumaLOG 300 UNITS/3 ML VIAL SC PRN (18:01)
[2021-01-18] MEDS: Enoxaparin Sodium 100 MG/ML SYRINGE SC SCH (21:43)
[2021-01-18] MEDS: Rosuvastatin 20 MG TAB PO SCH (21:44)
[2021-01-18] MEDS: Pantoprazole 40 MG GRANULES PACKET PO SCH (21:44)
[2021-01-18] MEDS: Lantus 1000 UNITS/10 ML VIAL SC SCH (21:49)
[2021-01-19 03:40] LABS: Band 3 % (5-11); Hemoglobin 11.9 g/dL (14.0-18.0); Hypochromia SLIGHT = 6-15 cells (100X) (0-5/hpf); Lymphocytes 18 % (21-51); MDiff Complete? YES; Mean Corpuscular HGB CONC 32.2 g/dL (32.0-36.0); Mean Corpuscular Hemoglobin 29.7 pg (27.0-31.0); Mean Corpuscular Volume 92.2 fL (78.0-98.0); Mean Platelet Volume 8.5 fL (7.4-10.4); Monocytes 3 % (0-10); Neutrophil 76 % (42-75); Platelet Count 310 thou/uL (130-400); Platelet Morphology Comment Appears Adequate; RBC Distribution Width 14.7 % (11.5-14.5); Red Blood Cell (RBC) Count 4.02 mill/uL (4.70-6.10)
[2021-01-19 03:48] LABS: Anion Gap 16 mmol/L (10-20); BUN (Urea Nitrogen) 17 mg/dL (8.4-25.7); Calc. Creatinine Clearance 138 mL/min (70-130); Calcium 8.5 mg/dL (7.8-10.44); Carbon Dioxide 35 mmol/L (23-31); Chloride 97 mmol/L (98-107); Glucose 196 mg/dL (83-110); Magnesium 1.7 mg/dL (1.6-2.6); Potassium 3.5 mmol/L (3.5-5.1); Sodium 144 mmol/L (136-145)
[2021-01-19] MEDS: Acetaminophen 325 MG TAB PO PRN (04:51)
[2021-01-19] MEDS ORDERED: Magnesium 2 GM/50 ML 2 GM in Premix Bag 1 BAG IVPB SCH (06:45)
[2021-01-19] MEDS ORDERED: Potassium Chloride 40 MEQ in Sodium Chloride 0.9% 250 ML 250 ML IVPB SCH (06:45)
[2021-01-19] MEDS: Furosemide 80 MG TAB PO SCH ×2 (08:36→14:12)
[2021-01-19] MEDS: methylPREDNISolone Sod Succ 40 MG VIAL IVP SCH (08:36)
[2021-01-19] MEDS: Aspirin Chewable 81 MG TAB PO SCH (08:36)
[2021-01-19] MEDS: Senokot S 8.6-50 MG TAB PO SCH ×2 (08:50→20:55)
[2021-01-19] MEDS: Polyethylene Glycol 3350 17 GM Packet PO SCH (08:50)
[2021-01-19] MEDS: Enoxaparin Sodium 100 MG/ML SYRINGE SC SCH ×2 (08:50→20:55)
[2021-01-19] MEDS: HumaLOG 300 UNITS/3 ML VIAL SC PRN ×3 (10:04→22:36)
[2021-01-19] MEDS ORDERED: Ketamine 50 MG/ML (10ML VIAL) ONE (11:13)
[2021-01-19] MEDS ORDERED: Lidocaine 1% (PF) 30 ML VIAL ONE ×2 (11:23→11:40)
[2021-01-19] MEDS ORDERED: Heparin 0 ML ONE (11:23)
[2021-01-19] MEDS ORDERED: Heparin 10,000 UNITS/ 10 ML VIAL ONE (11:39)
[2021-01-19] MEDS ORDERED: Ondansetron PF 4 MG/2 ML Vial ONE (12:16)
[2021-01-19] MEDS ORDERED: Benzocaine 20% Spray 60 ML CAN ONE (12:19)
[2021-01-19] MEDS ORDERED: Midazolam HCl 2 mg/2 ml Vial ONE (12:23)
[2021-01-19] MEDS ORDERED: Isoproterenol 0.2 MG/1 ML AMP ONE (13:05)
[2021-01-19] MEDS: Rosuvastatin 20 MG TAB PO SCH (20:55)
[2021-01-19] MEDS: Pantoprazole 40 MG GRANULES PACKET PO SCH (20:55)
[2021-01-19] MEDS: Lantus 1000 UNITS/10 ML VIAL SC SCH (21:00)
[2021-01-20 04:03] LABS: Hemoglobin 11.4 g/dL (14.0-18.0); Mean Corpuscular HGB CONC 33.5 g/dL (32.0-36.0); Mean Corpuscular Hemoglobin 31.2 pg (27.0-31.0); Mean Corpuscular Volume 92.9 fL (78.0-98.0); Mean Platelet Volume 8.8 fL (7.4-10.4); Platelet Count 292 thou/uL (130-400); RBC Distribution Width 14.6 % (11.5-14.5); Red Blood Cell (RBC) Count 3.66 mill/uL (4.70-6.10); White Blood Cell (WBC) Count 9.1 thou/uL (4.8-10.8)
[2021-01-20 04:17] LABS: Anion Gap 12 mmol/L (10-20); BUN (Urea Nitrogen) 14 mg/dL (8.4-25.7); Calc. Creatinine Clearance 162 mL/min (70-130); Calcium 8.5 mg/dL (7.8-10.44); Carbon Dioxide 36 mmol/L (23-31); Chloride 97 mmol/L (98-107); Glucose 193 mg/dL (83-110); Potassium 3.4 mmol/L (3.5-5.1); Sodium 142 mmol/L (136-145)
[2021-01-20 04:18] LABS: Lymphocytes 16 % (21-51); MDiff Complete? YES; Monocytes 10 % (0-10); Neutrophil 73 % (42-75); Platelet Morphology Comment Appears Adequate
[2021-01-20] MEDS ORDERED: Potassium Chloride 40 MEQ in Sodium Chloride 0.9% 250 ML 250 ML IVPB SCH (06:00)
[2021-01-20] MEDS ORDERED: Magnesium 2 GM/50 ML 2 GM in Premix Bag 1 BAG IVPB SCH (06:15)
[2021-01-20] MEDS: Aspirin Chewable 81 MG TAB PO SCH (08:00)
[2021-01-20] MEDS: Furosemide 80 MG TAB PO SCH ×2 (08:01→14:35)
[2021-01-20] MEDS: Senokot S 8.6-50 MG TAB PO SCH ×2 (08:01→20:38)
[2021-01-20] MEDS: Polyethylene Glycol 3350 17 GM Packet PO SCH (08:04)
[2021-01-20] MEDS: methylPREDNISolone Sod Succ 40 MG VIAL IVP SCH (08:04)
[2021-01-20] MEDS: Enoxaparin Sodium 100 MG/ML SYRINGE SC SCH (08:08)
[2021-01-20] MEDS ORDERED: Apixaban 5 MG TAB PO SCH (09:00)
[2021-01-20] MEDS: HumaLOG 300 UNITS/3 ML VIAL SC PRN ×3 (10:33→20:46)
[2021-01-20] MEDS ORDERED: Metolazone 2.5 MG TAB PO SCH (13:30)
[2021-01-20] MEDS: Apixaban 5 MG TAB PO SCH (20:37)
[2021-01-20] MEDS: Rosuvastatin 20 MG TAB PO SCH (20:38)
[2021-01-20] MEDS: Pantoprazole 40 MG GRANULES PACKET PO SCH (20:38)
[2021-01-20] MEDS: Lantus 1000 UNITS/10 ML VIAL SC SCH (20:46)
[2021-01-21 03:59] LABS: BUN (Urea Nitrogen) 16 mg/dL (8.4-25.7); Calc. Creatinine Clearance 141 mL/min (70-130); Calcium 9.1 mg/dL (7.8-10.44); Glucose 186 mg/dL (83-110)
[2021-01-21 04:16] LABS: Chloride 94 mmol/L (98-107); Sodium 143 mmol/L (136-145)
[2021-01-21 04:19] LABS: Anion Gap 21 mmol/L (10-20); Carbon Dioxide 32 mmol/L (23-31)
[2021-01-21 04:30] LABS: Band 6 % (5-11); Hemoglobin 11.9 g/dL (14.0-18.0); Lymphocytes 18 % (21-51); MDiff Complete? YES; Mean Corpuscular HGB CONC 33.2 g/dL (32.0-36.0); Mean Corpuscular Hemoglobin 30.6 pg (27.0-31.0); Mean Corpuscular Volume 92.2 fL (78.0-98.0); Mean Platelet Volume 8.5 fL (7.4-10.4); Monocytes 4 % (0-10); Neutrophil 71 % (42-75); Platelet Count 291 thou/uL (130-400); RBC Distribution Width 14.6 % (11.5-14.5); Red Blood Cell (RBC) Count 3.88 mill/uL (4.70-6.10); White Blood Cell (WBC) Count 9.9 thou/uL (4.8-10.8)
[2021-01-21] MEDS ORDERED: Magnesium 2 GM/50 ML 2 GM in Premix Bag 1 BAG IVPB SCH (05:30)
[2021-01-21] MEDS: predniSONE 20 MG TAB PO SCH (07:48)
[2021-01-21] MEDS: Apixaban 5 MG TAB PO SCH (07:50)
[2021-01-21] MEDS: Furosemide 80 MG TAB PO SCH ×2 (07:51→14:47)
[2021-01-21] MEDS: Magnesium Oxide 400 MG TAB PO SCH (07:51)
[2021-01-21] MEDS: Senokot S 8.6-50 MG TAB PO SCH ×2 (07:51→21:00)
[2021-01-21] MEDS: Polyethylene Glycol 3350 17 GM Packet PO SCH (07:51)
[2021-01-21] MEDS: Aspirin Chewable 81 MG TAB PO SCH (07:51)
[2021-01-21] MEDS: Metolazone 2.5 MG TAB PO SCH (07:53)
[2021-01-21] MEDS ORDERED: Potassium Chloride 20 MEQ TAB PO SCH (08:00)
[2021-01-21] MEDS: HumaLOG 300 UNITS/3 ML VIAL SC PRN ×2 (11:56→18:06)
[2021-01-21 13:46] VITALS: BMI 43.8
[2021-01-21] MEDS: Acetaminophen 325 MG TAB PO PRN (19:51)
[2021-01-21] MEDS: Rosuvastatin 20 MG TAB PO SCH (20:59)
[2021-01-21] MEDS: Pantoprazole 40 MG GRANULES PACKET PO SCH (21:00)
[2021-01-21] MEDS ORDERED: Enoxaparin Sodium 120 MG/0.8 ML SYRINGE SC SCH (21:00)
[2021-01-21] MEDS: Lantus 1000 UNITS/10 ML VIAL SC SCH (21:01)
[2021-01-22 05:05] LABS: Hemoglobin 11.4 g/dL (14.0-18.0); Mean Corpuscular HGB CONC 32.8 g/dL (32.0-36.0); Mean Corpuscular Hemoglobin 30.1 pg (27.0-31.0); Mean Corpuscular Volume 91.9 fL (78.0-98.0); Mean Platelet Volume 8.5 fL (7.4-10.4); Platelet Count 309 thou/uL (130-400); RBC Distribution Width 14.4 % (11.5-14.5); Red Blood Cell (RBC) Count 3.79 mill/uL (4.70-6.10); White Blood Cell (WBC) Count 9.7 thou/uL (4.8-10.8)
[2021-01-22 05:07] LABS: BUN (Urea Nitrogen) 20 mg/dL (8.4-25.7); Calc. Creatinine Clearance 151 mL/min (70-130); Calcium 9.4 mg/dL (7.8-10.44); Glucose 125 mg/dL (83-110); Magnesium 1.8 mg/dL (1.6-2.6)
[2021-01-22 05:16] LABS: Anion Gap 20 mmol/L (10-20); Carbon Dioxide 34 mmol/L (23-31); Chloride 91 mmol/L (98-107); Potassium 3.1 mmol/L (3.5-5.1); Sodium 142 mmol/L (136-145)
[2021-01-22 05:35] LABS: MDiff Complete? YES
[2021-01-22 05:36] LABS: Band 1 % (5-11); Eosinophils 1 % (0-10); Lymphocytes 28 % (21-51); Monocytes 6 % (0-10); Neutrophil 64 % (42-75)
[2021-01-22] MEDS ORDERED: Magnesium 2 GM/50 ML 2 GM in Premix Bag 1 BAG IVPB SCH (09:15)
[2021-01-22] MEDS: Potassium Chloride 20 MEQ TAB PO SCH ×2 (09:37→15:35)
[2021-01-22] MEDS: predniSONE 20 MG TAB PO SCH ×2 (09:37→15:36)
[2021-01-22] MEDS: Aspirin Chewable 81 MG TAB PO SCH (09:52)
[2021-01-22] MEDS: Magnesium Oxide 400 MG TAB PO SCH (09:53)
[2021-01-22] MEDS: Senokot S 8.6-50 MG TAB PO SCH ×2 (09:53→20:48)
[2021-01-22] MEDS: Polyethylene Glycol 3350 17 GM Packet PO SCH (09:53)
[2021-01-22] MEDS: Metolazone 2.5 MG TAB PO SCH (09:54)
[2021-01-22] MEDS: Furosemide 80 MG TAB PO SCH (09:54)
[2021-01-22] MEDS ORDERED: Lidocaine 1% w/Epinephrine 1:100K 20 ML VIAL ONE (12:06)
[2021-01-22] MEDS: Acetaminophen 325 MG TAB PO PRN (15:36)
[2021-01-22] MEDS: HumaLOG 300 UNITS/3 ML VIAL SC PRN ×2 (18:52→20:53)
[2021-01-22] MEDS: Pantoprazole 40 MG GRANULES PACKET PO SCH (20:48)
[2021-01-22] MEDS: Rosuvastatin 20 MG TAB PO SCH (20:48)
[2021-01-22] MEDS: Lantus 1000 UNITS/10 ML VIAL SC SCH (20:52)
[2021-01-23 05:19] LABS: Hemoglobin 12.5 g/dL (14.0-18.0); Mean Corpuscular HGB CONC 32.6 g/dL (32.0-36.0); Mean Corpuscular Hemoglobin 29.8 pg (27.0-31.0); Mean Corpuscular Volume 91.6 fL (78.0-98.0); Mean Platelet Volume 8.4 fL (7.4-10.4); Platelet Count 325 thou/uL (130-400); RBC Distribution Width 14.7 % (11.5-14.5); Red Blood Cell (RBC) Count 4.21 mill/uL (4.70-6.10); White Blood Cell (WBC) Count 9.2 thou/uL (4.8-10.8)
[2021-01-23 05:25] LABS: Anion Gap 16 mmol/L (10-20); BUN (Urea Nitrogen) 22 mg/dL (8.4-25.7); Calc. Creatinine Clearance 129 mL/min (70-130); Calcium 9.8 mg/dL (7.8-10.44); Carbon Dioxide 37 mmol/L (23-31); Chloride 90 mmol/L (98-107); Glucose 251 mg/dL (83-110); Magnesium 1.8 mg/dL (1.6-2.6); Sodium 139 mmol/L (136-145)
[2021-01-23 05:52] LABS: Band 15 % (5-11); Lymphocytes 24 % (21-51); MDiff Complete? YES; Monocytes 6 % (0-10); Neutrophil 54 % (42-75)
[2021-01-23] MEDS ORDERED: Magnesium 2 GM/50 ML 2 GM in Premix Bag 1 BAG IVPB SCH (06:00)
[2021-01-23] MEDS: HumaLOG 300 UNITS/3 ML VIAL SC PRN ×2 (06:19→12:22)
[2021-01-23] MEDS: Potassium Chloride 20 MEQ TAB PO SCH (08:44)
[2021-01-23] MEDS: predniSONE 20 MG TAB PO SCH (08:44)
[2021-01-23] MEDS: Metolazone 2.5 MG TAB PO SCH (08:44)
[2021-01-23] MEDS: Aspirin Chewable 81 MG TAB PO SCH (08:44)
[2021-01-23] MEDS: Furosemide 80 MG TAB PO SCH (08:45)
[2021-01-23] MEDS: Magnesium Oxide 400 MG TAB PO SCH (08:45)
[2021-01-23] MEDS: Polyethylene Glycol 3350 17 GM Packet PO SCH (08:45)
[2021-01-23] MEDS: Senokot S 8.6-50 MG TAB PO SCH (08:45)
[2021-01-23 12:14] VITALS: BP 124/69; TEMP 97.5
== END 2021-01-23 13:10 | disposition home health service (06) | DRG 640 ==
LOC: CCU 03:23 → 2NO 01-21 15:41
PROVIDERS: ADMIT Internal Medicine; ATTEND Internal Medicine
PROC: 5A1945Z Respiratory Ventilation, 24-96 Consecutive Hours (ICD-10-PCS; principal; 2021-01-08)
PROC: 3E043XZ Introduction of Vasopressor into Central Vein, Percutaneous Approach (ICD-10-PCS; 2021-01-08)
PROC: 0D9670Z Drainage of Stomach with Drainage Device, Via Natural or Artificial Opening (ICD-10-PCS; 2021-01-08)
PROC: 5A09357 Assistance with Respiratory Ventilation, Less than 24 Consecutive Hours, Continuous Positive Airway Pressure (ICD-10-PCS; 2021-01-11)
PROC: 4A023N7 Measurement of Cardiac Sampling and Pressure, Left Heart, Percutaneous Approach (ICD-10-PCS; 2021-01-17)
PROC: B2111ZZ Fluoroscopy of Multiple Coronary Arteries using Low Osmolar Contrast (ICD-10-PCS; 2021-01-17)
PROC: B2151ZZ Fluoroscopy of Left Heart using Low Osmolar Contrast (ICD-10-PCS; 2021-01-17)
PROC: B24BZZ4 Ultrasonography of Heart with Aorta, Transesophageal (ICD-10-PCS; 2021-01-19)
PROC: 4A023FZ Measurement of Cardiac Rhythm, Percutaneous Approach (ICD-10-PCS; 2021-01-19)
PROC: 4A0234Z Measurement of Cardiac Electrical Activity, Percutaneous Approach (ICD-10-PCS; 2021-01-19)
PROC: 02K83ZZ Map Conduction Mechanism, Percutaneous Approach (ICD-10-PCS; 2021-01-19)
DX: E87.6 Hypokalemia (principal); I46.8 Cardiac arrest due to other underlying condition; J96.01 Acute respiratory failure with hypoxia; J96.02 Acute respiratory failure with hypercapnia; I50.33 Acute on chronic diastolic (congestive) heart failure; I21.A1 Myocardial infarction type 2; R57.8 Other shock; N17.9 Acute kidney failure, unspecified; I13.0 Hypertensive heart and chronic kidney disease with heart failure and stage 1 through stage 4 chronic kidney disease, or unspecified chronic kidney disease; Z68.42 Body mass index [BMI] 45.0-49.9, adult; E27.40 Unspecified adrenocortical insufficiency; G93.1 Anoxic brain damage, not elsewhere classified; L03.116 Cellulitis of left lower limb; L03.115 Cellulitis of right lower limb; L97.419 Non-pressure chronic ulcer of right heel and midfoot with unspecified severity; I47.2 Ventricular tachycardia; I48.19 Other persistent atrial fibrillation; E87.2 Acidosis; E87.3 Alkalosis; Z66 Do not resuscitate; Z96.653 Presence of artificial knee joint, bilateral; I25.10 Atherosclerotic heart disease of native coronary artery without angina pectoris; E66.01 Morbid (severe) obesity due to excess calories; E78.5 Hyperlipidemia, unspecified; E11.65 Type 2 diabetes mellitus with hyperglycemia; N18.30 Chronic kidney disease, stage 3 unspecified; E11.22 Type 2 diabetes mellitus with diabetic chronic kidney disease; G47.33 Obstructive sleep apnea (adult) (pediatric); I45.81 Long QT syndrome; J84.10 Pulmonary fibrosis, unspecified; T50.1X5A Adverse effect of loop [high-ceiling] diuretics, initial encounter; I08.3 Combined rheumatic disorders of mitral, aortic and tricuspid valves; E11.621 Type 2 diabetes mellitus with foot ulcer; E83.42 Hypomagnesemia; R13.10 Dysphagia, unspecified; Z88.6 Allergy status to analgesic agent; Z86.16 Personal history of COVID-19; Z78.1 Physical restraint status; Z79.899 Other long term (current) drug therapy; Z79.4 Long term (current) use of insulin; Z90.49 Acquired absence of other specified parts of digestive tract; Z90.89 Acquired absence of other organs; Z98.890 Other specified postprocedural states; Z95.5 Presence of coronary angioplasty implant and graft; Z87.891 Personal history of nicotine dependence; Z71.0 Person encountering health services to consult on behalf of another person; Z87.01 Personal history of pneumonia (recurrent); Z81.8 Family history of other mental and behavioral disorders; Z82.49 Family history of ischemic heart disease and other diseases of the circulatory system; Z84.1 Family history of disorders of kidney and ureter
CPT/HCPCS: 33285; 36415; 36416; 36600; 70450; 71045; 71275; 76942; 78451; 80048; 80053; 80202; 81003; 81015; 82533; 82553; 82805; 83605; 83735; 83880; 84100; 84132; 84484; 85007; 85025; 85027; 85379; 85610; 85730; 87040; 93005; 93010; 93306; 93312; 93458; 93621; 93970; 94002; 94003; 94660; 95816; 95819; 95957; 99152; A9540; C1730; C1764; C9113; J0692; J1120; J1644; J1650; J1720; J1815; J1940; J2001; J2060; J2250; J2405; J2704; J2920; J3010; J3370; J3475; J3480; J3490; J7050; J7512; Q9967; S0028

== ENCOUNTER 2021-04-09 15:13 | Inpatient (IN) | payer MEDICARE, BC ==
[2021-04-09 17:11] LABS: #Basophils 0.1 thou/uL (0.0-0.2); #Eosinphils 0.4 thou/uL (0.0-0.7); #Lymphocytes 2.1 thou/uL (1.20-3.40); #Monocytes 0.5 thou/uL (0.11-0.59); #Neutrophils 5.2 thou/uL (1.40-6.50); %Eosinophils 5.3 % (0.0-10.0); %Lymphocytes 25.8 % (21.0-51.0); %Monocytes 5.5 % (0.0-10.0); %Neutrophils 62.4 % (42.0-75.0); Hemoglobin 13.6 g/dL (14.0-18.0); Mean Corpuscular HGB CONC 33.8 g/dL (32.0-36.0); Mean Corpuscular Hemoglobin 29.9 pg (27.0-31.0); Mean Corpuscular Volume 88.5 fL (78.0-98.0); Platelet Count 205 thou/uL (130-400); RBC Distribution Width 14.4 % (11.5-14.5); Red Blood Cell (RBC) Count 4.55 mill/uL (4.70-6.10); White Blood Cell (WBC) Count 8.3 thou/uL (4.8-10.8)
[2021-04-09 17:22] LABS: INR-International Normal Ratio 2.3; PTT 54.9 sec (22.9-36.1); Prothrombin Time 25.6 sec (12.0-14.7)
[2021-04-09 17:36] LABS: Bilirubin, Total 0.7 mg/dL (0.2-1.2); Calcium 9.1 mg/dL (7.8-10.44); Chloride 98 mmol/L (98-107); Potassium 3.8 mmol/L (3.5-5.1); Sodium 145 mmol/L (136-145)
[2021-04-09] MEDS ORDERED: Furosemide 40 MG/4 ML VIAL ONE (18:11)
[2021-04-09 18:12] LABS: ALT (SGPT) 13 U/L (8-55); AST (SGOT) 22 U/L (5-34); Albumin 3.4 g/dL (3.4-4.8); Alkaline Phosphatase 87 U/L (40-110); Anion Gap 14 mmol/L (10-20); BUN (Urea Nitrogen) 39 mg/dL (8.4-25.7); Calc. Creatinine Clearance 0 mL/min (70-130); Carbon Dioxide 37 mmol/L (23-31); Globulin 2.9 g/dL (2.4-3.5); Glucose 151 mg/dL (83-110); Lipase 14 U/L (8-78); Protein, Total 6.3 g/dL (5.8-8.1)
[2021-04-10] MEDS: traMADol HCl 50 MG TAB PO PRN ×2 (02:17→08:39)
[2021-04-10] MEDS ORDERED: Acetaminophen 325 MG TAB PO PRN (04:04)
[2021-04-10] MEDS ORDERED: Dextrose 5% in Water 1,000 ML IV PRN (04:26)
[2021-04-10] MEDS ORDERED: Dextrose 50% Abboject 50 ML SYRINGE SLOW IVP PRN (04:26)
[2021-04-10 06:02] LABS: Cardiac Risk 6.5 (Less than 4.5)
[2021-04-10] MEDS: Furosemide 40 MG/4 ML VIAL SLOW IVP SCH ×2 (06:04→15:56)
[2021-04-10] MEDS: AcetaZOLAMIDE 250 MG TAB PO SCH ×2 (08:38→21:12)
[2021-04-10] MEDS: Aspirin Chewable 81 MG TAB PO SCH (08:39)
[2021-04-10] MEDS ORDERED: Lantus 1000 UNITS/10 ML VIAL SC SCH ×3 (09:00→21:00)
[2021-04-10] MEDS ORDERED: Empagliflozin 10 MG TAB PO SCH (15:45)
[2021-04-10] MEDS ORDERED: Furosemide 20 MG TAB PO SCH (15:45)
[2021-04-10 18:15] LABS: SARS-CoV-2 PCR by NAA Not Detected (NotDetected)
[2021-04-10] MEDS: Lantus 1000 UNITS/10 ML VIAL SC SCH (21:12)
[2021-04-11] MEDS: traMADol HCl 50 MG TAB PO PRN (01:53)
[2021-04-11 05:12] LABS: #Eosinphils 0.5 thou/uL (0.0-0.7); #Lymphocytes 1.5 thou/uL (1.20-3.40); #Monocytes 0.4 thou/uL (0.11-0.59); #Neutrophils 6.2 thou/uL (1.40-6.50); %Basophils 0.3 % (0.0-1.0); %Eosinophils 5.6 % (0.0-10.0); %Lymphocytes 17.5 % (21.0-51.0); %Monocytes 5.1 % (0.0-10.0); %Neutrophils 71.4 % (42.0-75.0); Hemoglobin 12.7 g/dL (14.0-18.0); Mean Corpuscular HGB CONC 31.3 g/dL (32.0-36.0); Mean Corpuscular Hemoglobin 28.1 pg (27.0-31.0); Mean Corpuscular Volume 89.9 fL (78.0-98.0); Mean Platelet Volume 9.2 fL (7.4-10.4); Platelet Count 186 thou/uL (130-400); RBC Distribution Width 14.3 % (11.5-14.5); Red Blood Cell (RBC) Count 4.52 mill/uL (4.70-6.10); White Blood Cell (WBC) Count 8.6 thou/uL (4.8-10.8)
[2021-04-11 05:34] LABS: BUN (Urea Nitrogen) 33 mg/dL (8.4-25.7); Calc. Creatinine Clearance 94 mL/min (70-130); Calcium 9.1 mg/dL (7.8-10.44); Glucose 110 mg/dL (83-110)
[2021-04-11 05:43] LABS: Anion Gap 17 mmol/L (10-20); Carbon Dioxide 32 mmol/L (23-31); Chloride 98 mmol/L (98-107); Potassium 3.5 mmol/L (3.5-5.1); Sodium 143 mmol/L (136-145)
[2021-04-11] MEDS: AcetaZOLAMIDE 250 MG TAB PO SCH ×2 (08:30→22:01)
[2021-04-11] MEDS: Aspirin Chewable 81 MG TAB PO SCH (08:30)
[2021-04-11] MEDS: Metolazone 2.5 MG TAB PO SCH (08:30)
[2021-04-11] MEDS: Furosemide 40 MG TAB PO SCH ×2 (08:31→14:40)
[2021-04-11] MEDS: Rivaroxaban 10 MG TAB PO SCH (08:31)
[2021-04-11] MEDS ORDERED: Lantus 1000 UNITS/10 ML VIAL SC SCH (09:00)
[2021-04-11] MEDS: Lantus 1000 UNITS/10 ML VIAL SC SCH (22:03)
[2021-04-12 05:25] LABS: Anion Gap 16 mmol/L (10-20); BUN (Urea Nitrogen) 31 mg/dL (8.4-25.7); Calc. Creatinine Clearance 0 mL/min (70-130); Calcium 8.9 mg/dL (7.8-10.44); Carbon Dioxide 36 mmol/L (23-31); Chloride 94 mmol/L (98-107); Glucose 70 mg/dL (83-110); Sodium 143 mmol/L (136-145)
[2021-04-12 05:28] LABS: Troponin I 0.015 ng/mL (< 0.028)
[2021-04-12 05:34] LABS: Potassium 2.7 mmol/L (3.5-5.1)
[2021-04-12] MEDS ORDERED: Potassium Chloride 20 MEQ TAB PO SCH ×2 (06:00→07:30)
[2021-04-12 06:12] LABS: Magnesium 2.4 mg/dL (1.6-2.6)
[2021-04-12] MEDS: Metolazone 2.5 MG TAB PO SCH (09:32)
[2021-04-12] MEDS: Empagliflozin 10 MG TAB PO SCH (09:33)
[2021-04-12] MEDS: Potassium Chloride 20 MEQ TAB PO SCH ×3 (09:33→23:05)
[2021-04-12] MEDS: AcetaZOLAMIDE 250 MG TAB PO SCH ×2 (09:33→20:37)
[2021-04-12] MEDS: Aspirin Chewable 81 MG TAB PO SCH (09:34)
[2021-04-12] MEDS: Rivaroxaban 10 MG TAB PO SCH (09:34)
[2021-04-12] MEDS: Furosemide 40 MG TAB PO SCH ×2 (09:34→15:27)
[2021-04-12] MEDS: traMADol HCl 50 MG TAB PO PRN (19:59)
[2021-04-12] MEDS: Lantus 1000 UNITS/10 ML VIAL SC SCH (20:38)
[2021-04-13 05:41] VITALS: BMI 42.0
[2021-04-13 06:18] LABS: Magnesium 2.5 mg/dL (1.6-2.6)
[2021-04-13] MEDS ORDERED: Furosemide 40 MG TAB PO SCH (07:30)
[2021-04-13] MEDS: Aspirin Chewable 81 MG TAB PO SCH (09:28)
[2021-04-13] MEDS: Empagliflozin 10 MG TAB PO SCH (09:28)
[2021-04-13] MEDS: Rivaroxaban 10 MG TAB PO SCH (09:28)
[2021-04-13 09:56] LABS: #Eosinphils 0.4 thou/uL (0.0-0.7); #Lymphocytes 1.6 thou/uL (1.20-3.40); #Monocytes 0.6 thou/uL (0.11-0.59); %Basophils 0.6 % (0.0-1.0); %Eosinophils 4.5 % (0.0-10.0); %Lymphocytes 18.2 % (21.0-51.0); %Monocytes 6.6 % (0.0-10.0); %Neutrophils 70.1 % (42.0-75.0); Hemoglobin 12.9 g/dL (14.0-18.0); Mean Corpuscular HGB CONC 32.7 g/dL (32.0-36.0); Mean Corpuscular Hemoglobin 29.1 pg (27.0-31.0); Mean Platelet Volume 9.2 fL (7.4-10.4); Platelet Count 207 thou/uL (130-400); RBC Distribution Width 14.5 % (11.5-14.5); Red Blood Cell (RBC) Count 4.44 mill/uL (4.70-6.10); White Blood Cell (WBC) Count 8.6 thou/uL (4.8-10.8)
[2021-04-13 10:27] LABS: Anion Gap 14 mmol/L (10-20); BUN (Urea Nitrogen) 31 mg/dL (8.4-25.7); Calc. Creatinine Clearance 86 mL/min (70-130); Calcium 9.3 mg/dL (7.8-10.44); Carbon Dioxide 37 mmol/L (23-31); Chloride 93 mmol/L (98-107); Glucose 96 mg/dL (83-110); Sodium 141 mmol/L (136-145)
[2021-04-13 11:42] VITALS: BP 137/78; TEMP 97.6
[2021-04-13] MEDS ORDERED: Potassium Chloride 20 MEQ TAB PO SCH (12:00)
== END 2021-04-13 16:22 | disposition home or self-care (01) | DRG 291 ==
LOC: ERS 15:13 → 2NO 22:04 → OBSVTOIN 22:04
PROVIDERS: ADMIT Internal Medicine; ATTEND Internal Medicine
DX: I13.0 Hypertensive heart and chronic kidney disease with heart failure and stage 1 through stage 4 chronic kidney disease, or unspecified chronic kidney disease (principal); Z20.822 Contact with and (suspected) exposure to COVID-19; I50.33 Acute on chronic diastolic (congestive) heart failure; N17.9 Acute kidney failure, unspecified; Z68.41 Body mass index [BMI] 40.0-44.9, adult; E87.3 Alkalosis; E66.2 Morbid (severe) obesity with alveolar hypoventilation; I25.10 Atherosclerotic heart disease of native coronary artery without angina pectoris; T50.1X5A Adverse effect of loop [high-ceiling] diuretics, initial encounter; J84.10 Pulmonary fibrosis, unspecified; E11.22 Type 2 diabetes mellitus with diabetic chronic kidney disease; N18.9 Chronic kidney disease, unspecified; E78.5 Hyperlipidemia, unspecified; Z96.653 Presence of artificial knee joint, bilateral; F41.9 Anxiety disorder, unspecified; I48.0 Paroxysmal atrial fibrillation; I08.1 Rheumatic disorders of both mitral and tricuspid valves; I27.20 Pulmonary hypertension, unspecified; E78.00 Pure hypercholesterolemia, unspecified; E87.6 Hypokalemia; Z86.16 Personal history of COVID-19; Z87.01 Personal history of pneumonia (recurrent); Z86.74 Personal history of sudden cardiac arrest; Z88.5 Allergy status to narcotic agent; I25.2 Old myocardial infarction; Z95.5 Presence of coronary angioplasty implant and graft; Z90.49 Acquired absence of other specified parts of digestive tract; Z98.890 Other specified postprocedural states; Z98.42 Cataract extraction status, left eye; Z98.41 Cataract extraction status, right eye; Z79.4 Long term (current) use of insulin; Z79.82 Long term (current) use of aspirin; Z79.899 Other long term (current) drug therapy; Z79.01 Long term (current) use of anticoagulants; Z90.89 Acquired absence of other organs; Z87.891 Personal history of nicotine dependence; Z82.49 Family history of ischemic heart disease and other diseases of the circulatory system; Z84.1 Family history of disorders of kidney and ureter
CPT/HCPCS: 36415; 36416; 71045; 80048; 80053; 80061; 83690; 83735; 83880; 84484; 85025; 85610; 85730; 93005; 93010; 93306; 93798; 96374; J1815; J1940; U0003; U0005

== ENCOUNTER 2021-04-14 19:00 | Outpatient (CLI) | payer MEDICARE, BC | END 2021-04-14 19:01 | disposition home or self-care (01) | LOC: SLEEPLAB 19:00 | PROVIDERS: ATTEND Internal Medicine Critical Care Medicine | DX: G47.33 Obstructive sleep apnea (adult) (pediatric) (principal); I11.0 Hypertensive heart disease with heart failure; I50.9 Heart failure, unspecified; E11.9 Type 2 diabetes mellitus without complications; I25.10 Atherosclerotic heart disease of native coronary artery without angina pectoris | CPT/HCPCS: 95806 ==

== ENCOUNTER 2021-05-26 22:20 | Inpatient (IN) | payer MEDICARE, BC ==
[2021-05-26 23:10] LABS: #Basophils 0.1 thou/uL (0.0-0.2); #Eosinphils 0.2 thou/uL (0.0-0.7); #Lymphocytes 1.7 thou/uL (1.20-3.40); #Monocytes 0.9 thou/uL (0.11-0.59); %Basophils 0.5 % (0.0-1.0); %Eosinophils 1.7 % (0.0-10.0); %Lymphocytes 12.2 % (21.0-51.0); %Monocytes 6.3 % (0.0-10.0); %Neutrophils 79.3 % (42.0-75.0); Hemoglobin 16.7 g/dL (14.0-18.0); Mean Corpuscular HGB CONC 33.9 g/dL (32.0-36.0); Mean Corpuscular Hemoglobin 29.4 pg (27.0-31.0); Mean Corpuscular Volume 86.8 fL (78.0-98.0); Mean Platelet Volume 8.8 fL (7.4-10.4); Platelet Count 319 thou/uL (130-400); RBC Distribution Width 14.6 % (11.5-14.5); Red Blood Cell (RBC) Count 5.67 mill/uL (4.70-6.10); White Blood Cell (WBC) Count 13.9 thou/uL (4.8-10.8)
[2021-05-26 23:18] LABS: INR-International Normal Ratio 1.7; PTT 42.6 sec (22.9-36.1); Prothrombin Time 20.2 sec (12.0-14.7)
[2021-05-26 23:19] LABS: D-Dimer Test 0.68 *mcg/mL (0.27-0.43)
[2021-05-26 23:26] LABS: Bilirubin Negative (Negative); Blood, Urine Negative (Negative); Clarity Clear (Clear); Glucose, Urine (Dipstick) Greater than 1000 mg/dL (Negative); Ketone, Urine Negative (Negative); Leukocyte Negative Leu/uL (Negative); Nitrite Negative (Negative); Protein, Urine (Dipstick) Negative (Neg-Trace); Specific Gravity, Urine 1.015 (1.002-1.036); Urobilinogen Normal mg/dL (Less than 2); pH, Urine 6.5 (5.0-9.0)
[2021-05-26 23:28] LABS: ALT (SGPT) 13 U/L (8-55); AST (SGOT) 18 U/L (5-34); Albumin 4.1 g/dL (3.4-4.8); Alkaline Phosphatase 105 U/L (40-110); BUN (Urea Nitrogen) 47 mg/dL (8.4-25.7); Bilirubin, Total 1.2 mg/dL (0.2-1.2); Calc. Creatinine Clearance 0 mL/min (70-130); Calcium 10.3 mg/dL (7.8-10.44); Globulin 3.2 g/dL (2.4-3.5); Glucose 267 mg/dL (83-110); Lipase 33 U/L (8-78); Magnesium 3.1 mg/dL (1.6-2.6); Protein, Total 7.3 g/dL (5.8-8.1)
[2021-05-26 23:47] LABS: Chloride 79 mmol/L (98-107); Potassium 3.1 mmol/L (3.5-5.1); Sodium 139 mmol/L (136-145)
[2021-05-27 00:17] LABS: Carbon Dioxide 40 mmol/L (23-31)
[2021-05-27] MEDS ORDERED: Potassium Chloride 20 MEQ TAB ONE (00:26)
[2021-05-27 00:28] LABS: Anion Gap 23 mmol/L (10-20)
[2021-05-27] MEDS ORDERED: Aspirin Chewable 81 MG TAB ONE (00:29)
[2021-05-27 02:28] LABS: Lactic Acid 2.1 mmol/L (0.5-2.2)
[2021-05-27 02:38] LABS: Troponin I 0.014 ng/mL (< 0.028)
[2021-05-27 03:45] LABS: SARS-CoV-2 NAA Rapid Test Not Detected (NotDetected)
[2021-05-27 04:13] VITALS: BMI 40.2
[2021-05-27] MEDS ORDERED: Senokot S 8.6-50 MG TAB PO PRN (04:26)
[2021-05-27] MEDS ORDERED: Acetaminophen 325 MG TAB PO PRN (04:26)
[2021-05-27] MEDS ORDERED: Ondansetron PF 4 MG/2 ML Vial IVP PRN (04:26)
[2021-05-27] MEDS ORDERED: Dextrose 5% in Water 1,000 ML IV PRN (04:30)
[2021-05-27] MEDS ORDERED: Dextrose 50% Abboject 50 ML SYRINGE SLOW IVP PRN (04:30)
[2021-05-27] MEDS ORDERED: Sodium Chloride 0.9% 500 ML IV SCH (04:30)
[2021-05-27 04:45] LABS: #Eosinphils 0.1 thou/uL (0.0-0.7); #Lymphocytes 1.8 thou/uL (1.20-3.40); #Neutrophils 9.6 thou/uL (1.40-6.50); %Basophils 0.3 % (0.0-1.0); %Eosinophils 0.9 % (0.0-10.0); %Lymphocytes 14.1 % (21.0-51.0); %Monocytes 7.8 % (0.0-10.0); %Neutrophils 76.9 % (42.0-75.0); Hemoglobin 17.4 g/dL (14.0-18.0); Mean Corpuscular HGB CONC 34.6 g/dL (32.0-36.0); Mean Corpuscular Hemoglobin 29.7 pg (27.0-31.0); Mean Corpuscular Volume 85.8 fL (78.0-98.0); Platelet Count 241 thou/uL (130-400); Red Blood Cell (RBC) Count 5.86 mill/uL (4.70-6.10); White Blood Cell (WBC) Count 12.5 thou/uL (4.8-10.8)
[2021-05-27 05:13] LABS: Troponin I 0.018 ng/mL (< 0.028)
[2021-05-27 06:35] LABS: BUN (Urea Nitrogen) 47 mg/dL (8.4-25.7); Calc. Creatinine Clearance 80 mL/min (70-130); Calcium 9.8 mg/dL (7.8-10.44); Glucose 264 mg/dL (83-110)
[2021-05-27 06:58] LABS: Chloride 82 mmol/L (98-107); Potassium 3.5 mmol/L (3.5-5.1); Sodium 139 mmol/L (136-145)
[2021-05-27 07:09] LABS: Carbon Dioxide 35 mmol/L (23-31)
[2021-05-27 07:16] LABS: Anion Gap 26 mmol/L (10-20)
[2021-05-27 15:58] VITALS: BP 124/60; TEMP 97.9
[2021-05-28] MEDS ORDERED: FLU VACC QS2021-22(65YR UP)/PF 240 MCG/0.7 ML SYRINGE IM ONE (09:00)
== END 2021-05-27 17:45 | disposition home or self-care (01) | DRG 683 ==
LOC: ERS 22:20 → ERHOLD 05-27 00:26 → 2SW 05-27 06:56
PROVIDERS: ADMIT Internal Medicine; ATTEND Nurse Practitioner Family
DX: N17.9 Acute kidney failure, unspecified (principal); I50.32 Chronic diastolic (congestive) heart failure; E86.0 Dehydration; Z96.653 Presence of artificial knee joint, bilateral; F41.9 Anxiety disorder, unspecified; E87.6 Hypokalemia; K59.00 Constipation, unspecified; G89.29 Other chronic pain; Z20.822 Contact with and (suspected) exposure to COVID-19; I48.91 Unspecified atrial fibrillation; I25.10 Atherosclerotic heart disease of native coronary artery without angina pectoris; E78.5 Hyperlipidemia, unspecified; E78.00 Pure hypercholesterolemia, unspecified; I11.0 Hypertensive heart disease with heart failure; G47.33 Obstructive sleep apnea (adult) (pediatric); Z90.49 Acquired absence of other specified parts of digestive tract; Z88.8 Allergy status to other drugs, medicaments and biological substances; Z79.01 Long term (current) use of anticoagulants; Z79.82 Long term (current) use of aspirin; Z79.4 Long term (current) use of insulin; Z79.899 Other long term (current) drug therapy; Z95.818 Presence of other cardiac implants and grafts; I25.2 Old myocardial infarction; Z95.5 Presence of coronary angioplasty implant and graft; Z86.16 Personal history of COVID-19
CPT/HCPCS: 36415; 36416; 71045; 80048; 81003; 83605; 83690; 83735; 83880; 84484; 85025; 85379; 85610; 85730; 93005; 93880; J7030; U0002

== ENCOUNTER 2022-06-23 15:45 | Outpatient (CLI) | payer MEDICARE, BC | END 2022-06-23 15:46 | disposition home or self-care (01) | LOC: CTENTCT 15:45 | PROVIDERS: ATTEND Student in an Organized Health Care Education/Training Program | DX: J32.9 Chronic sinusitis, unspecified (principal) | CPT/HCPCS: 70486 ==